=== PATIENT | female | born 1960 | race Caucasian/White ===

== ENCOUNTER 2025-02-20 10:13 | Inpatient (IN) | payer MEDICARE, BC, SELFPAY ==
[2025-02-20] VITALS (8 sets, daily range): BP systolic 167–197; BP diastolic 79–101; PULSE 75–96; RESP 15–24; TEMP 36.2–36.8; O2SAT 98–100; BMI 28.5; BMI 28.3
--- NOTE | 2025-02-20 10:31 | CT_ITS ---
PROCEDURE: BRAIN/HEAD WITHOUT CONTRAST 02/20/2025 REASON FOR EXAM: INTERMITTENT BALANCE PROBLEMS, FORGETFULNESS TECHNIQUE: Procedure Code: CTBR Modality: CT Procedure: BRAIN/HEAD WITHOUT CONTRAST Coronal and Sagittal reconstruction series were provided. One or more dose reduction techniques were used (e.g., Automated exposure control, adjustment of the mA and/or kV according to patient size, use of iterative reconstruction technique. RADIATION DOSE SUMMARY: CTDlvol: 45 mGy DLP: 745 mGycm COMPARISON: None FINDINGS: Brain: There is no evidence of hemorrhage, acute ischemia or mass. No extra- axial fluid collection, midline shift or mass effect. Mild low-density in the periventricular white matter. CSF Spaces: Mild generalized cerebral atrophy Sinuses/Mastoids: Clear Bones: No fracture CT/Brain/Head without Contrast IMPRESSION: 1. No evidence of intracranial hemorrhage or acute ischemia. 2. Changes of chronic microvascular ischemia and volume loss. Reading Location: [id number]
--- NOTE | 2025-02-20 10:32 | EX.ED.DYSGE1 ---
HPI History of Present Illness Chief Complaint: Hypertension Detail of Chief Complaint: Intermittent dizziness , fogginess, blood pressure noted to be elevated t Informant: patient Onset/Context/Timing Onset: Today (Blood pressure 192/112 at work) and Month(s) (Other symptoms have been intermittent for over the past several months) Context: Sudden Onset Timing: Intermittent Quality: Dizziness, forgetfulness, feeling foggy Location: Not applicable Current Severity: Gone (Except blood pressure is elevated) Maximum Severity: Moderate Worsened by: Nothing Relieved by: Nothing Associated Symptoms Associated Symptoms: Nothing Narrative Narrative: Patient is a 64-year-old woman who has not seen a physician in 26 years who experienced dizziness today described as her balance being off. It is not positional. There is no associated double vision, blurred vision or loss of vision. She has had no trouble with speech or swallowing. She denies paresthesia, anesthesia or weakness of her upper or lower extremities. She denies headache. She denies nausea or vomiting. She denies black or maroon-colored stool. She has had intentional weight loss of approximately 40 pounds. There is no history of trauma. Patient does endorse thirst and dry mouth. She has had some increased urination as well Prior similar symptoms: No Recent Illness/Hospitalization: No PFSH PFSH Medical History no medical history no medical history Allergy/AdvReac Type Severity Reaction Status Date / Time No Known Allergies Allergy Verified 02/20/25 10:16 Surgical History no surgical history no surgical history Social History Smoking Status: Never smoker [facility] ED Constitutional Constitutional ED: Reports weight loss; Denies chills, fever(s), subjective or sweats Eyes Eyes: Reports other Details: She is scheduled for an eye appointment. Her insurance pays for new eyeglasses every 3 years. ; Denies blurry vision, change in vision or diplopia ENT ENT ED: Denies ear pain, rhinorrhea or sore throat Cardiovascular Cardiovascular: Denies chest pain, orthopnea, palpitations, paroxysmal nocturnal dyspnea or racing heartbeat Respiratory/Chest Respiratory/Chest: Denies cough, dyspnea, dyspnea on exertion, orthopnea or paroxysmal nocturnal dyspnea Gastrointestinal Gastrointestinal: Denies abdominal pain, nausea or vomiting Genitourinary Genitourinary ED: Denies dysuria, hematuria or urinary frequency Musculoskeletal Musculoskeletal: Denies arthralgias, back pain, myalgias or neck pain Integumentary Denies rash Neurologic Neurologic: Reports other Details: Detailed HPI narrative ; Denies headache(s), paresthesias or weakness Psychiatric Psychiatric: Denies anxiety or depression Endocrine Endocrinology: Denies cold intolerance or heat intolerance Hematologic/Lymphatic Hematologic/Lymphatic: Reports systems reviewed and no addt'l complaints, except as documented EXAM Physical Exam Const Vital Signs: 02/20/25 10:15 02/20/25 10:50 02/20/25 12:17 Temperature 97.6 F L Temperature Source Oral Pulse Rate 96 79 Respiratory Rate 18 16 Respiratory Effort Normal Non-Labored Respiratory Pattern Normal Blood Pressure 186/90 H 192/79 H Blood Pressure Mean 122 116 Pulse Ox 99 100 Oxygen Delivery Method Room Air Room Air Positive well nourished and well developed Constitutional Narrative: Blood pressure is elevated. General Appearance ED: well developed and NAD; Negative for pallor HEENT Reports moist mucous membranes HEENT Narrative: Head is atraumatic and normocephalic. Ears normal. Nares patent. Posterior pharynx is unremarkable. Uvula midline. No deviation tongue or protrusion. Eyes PERRL and EOMs intact bilaterally Eyes Narrative: There is no nystagmus. General Eye ED: Negative for pale conjunctiva or scleral icterus Neck no lymphadenopathy, supple and no JVD Chest Wall inspection of chest normal and palpation of chest normal Resp normal respiratory effort and clear to auscultation bilaterally Cardio regular rate, regular rhythm, S1 normal heart sound, S2 normal heart sound and no murmurs GI normal to inspection, nondistended, normoactive bowel sounds, non-tender, non-distended and no masses; Negative for hepatosplenomegaly Back/Spine no CVA tenderness Extremity normal to inspection General Extremety ED: Negative for edema or tenderness General Extremity: Negative for edema Neuro oriented x3, CN's II-XII intact bilaterally and no sensory deficits noted Neuro Narrative: Patient has no dysmetria. Romberg with eyes open and closes abnormal when her eyes are closed. Patient's proprioception is off. Significant other states at times when she is walking she seems to drift to the left. Sensorium / Orientation: alert Motor Exam: strength 5/5 throughout Skin no rashes or lesions noted, no wounds and No skin turgor normal General Skin Exam: Negative for jaundice or pallor MDM MDM MDM Narrative Medical decision making narrative: With intermittent dizziness that lasts hours and is not positional need to evaluate for central etiology and will obtain CT of the head. Since patient's proprioception is off will assess for folate and B12 deficiency. 2 relatives recently diagnosed with Radha's. She denies diarrhea, abdominal cramps, heat intolerance. She does have what I believed to be a nodule left lobe of the thyroid. Trachea was midline. For this reason we will obtain a TSH. CBC was obtained to assess for anemia since she appears pale. BMP to assess for renal function with her elevated blood pressure. There are no prior records and she has not seen a physician in 26 years. Lab Data Attestation: I reviewed the patient's lab results. Lab results narrative: CBC reveals mild anemia with normal indices. UA reveals bacteria without pyuria. Macro was positive for leukoesterase and negative for blood and nitrites. Protein was slightly elevated. Labs: Laboratory Results - last 24 hr 02/20/25 02/20/25 10:40 10:58 WBC 8.3 RBC 3.86 L Hgb 11.8 L Hct 33.4 L MCV 86.5 MCH 30.6 MCHC 35.3 RDW Std Deviation 44.0 H RDW Coeff of Liza 14.0 Plt Count 235 MPV 10.0 Immature Gran % (Auto) 0.500 Neut % (Auto) 67.9 Lymph % (Auto) 20.9 Nelson % (Auto) 9.1 Eos % (Auto) 1.1 Baso % (Auto) 0.5 Absolute Neuts (auto) 5.7 Absolute Lymphs (auto) 1.74 Nucleated RBC % 0 Sodium 141 Potassium 2.3 L* Chloride 101 Carbon Dioxide 30.5 Anion Gap 10 BUN 16 Creatinine 1.23 H Estim Creat Clear Calc 44.69 L Est GFR (MDRD) Non-Af 48 L BUN/Creatinine Ratio 12.9 Glucose 113 H Calcium 14.7 H* Total Bilirubin 0.61 AST 23 ALT 15 Alkaline Phosphatase 53 Total Protein 6.7 Albumin 4.1 Globulin 2.6 Albumin/Globulin Ratio 1.6 Vitamin B12 421 Serum Folate 18.10 TSH 3.250 Urine Color Yellow Urine Clarity Clear Urine pH 6.5 Ur Specific [place] 1.010 Urine Protein 30 H Urine Glucose (UA) Normal Urine Ketones Negative Urine Occult Blood Negative Urine Nitrite Negative Urine Bilirubin Negative Urine Urobilinogen Normal Ur Leukocyte Esterase 25 H Urine RBC 0-5 SEEN Urine WBC 0-5 SEEN Ur Squamous Epith Cells 5-10 SEEN Urine Bacteria 1+ Urine Mucus 0 SEEN With potassium of 2.3 will treat orally since there is no contraindication to oral treatment. Will obtain magnesium level. Because of the elevated calcium we will get a parathyroid level. Concern for malignancy. Will treat her hypercalcemia with IV fluids. Radiography Diagnostic Testing: Clinical Impression(s) from Imaging Studies Brain CT 02/20/25 10:31 IMPRESSION: 1. No evidence of intracranial hemorrhage or acute ischemia. 2. Changes of chronic microvascular ischemia and volume loss. Reading Location: [id number] Management Discussion w/another healthcare provider: Hospitalist (Case discussed with Dr. Reena Redmond. Admit PCU for workup of hypercalcemia and hypokalemia.) Discharge Plan Dx/Rx/DC Orders Clinical Impression: Hypercalcemia, Acute hypokalemia, Intermittent vertigo, Hypertension, Anemia, Elevated serum creatinine Disposition Disposition: Acute Care Hospital [facility]
[2025-02-20 10:51] LABS: Hematocrit 33.4 % (37-47); Hemoglobin 11.8 g/dL (12.0-15.0); Immature Granulocytes Count 0.040 X10^3/uL (0.0-0.0); Mean Corp Hgb Conc 35.3 g/dL (32-36); Mean Corpuscular Volume 86.5 fL (81-99); Mean Platelet Vol. 10.0 fl (6.2-12.0); NRBC Flagged by Analyzer 0 % (0-5); Platelet Count 235 K/mm3 (150-450); RBC Distribution Width CV 14.0 % (11.6-14.6); RBC Distribution Width SD 44.0 fl (35.1-43.9); Red Blood Count 3.86 M/mm3 (4.2-5.4); White Blood Count 8.3 K/mm3 (4.4-11.0)
[2025-02-20 11:05] LABS: Mucous, Urine 0 SEEN /hpf (<or=2+)
[2025-02-20 11:20] LABS: Color, Urine Yellow (Yellow); Glucose, Dipstick Normal (Normal); Ketone-Dipstick Negative (Negative); Leukocyte Esterase-Dipstick 25 /ul (Negative); Nitrite-Dipstick Negative (Negative); Occult Blood-Urine Negative /ul (Negative); Protein-Dipstick 30 mg/dl (Negative); Specific Gravity, Urine 1.010 (1.002-1.030); Urine Bilirubin Dipstick Negative (Negative)
[2025-02-20 11:32] LABS: Red Blood Cells-Urine 0-5 SEEN /hpf (0-5); Squamous Epithelial Cells - UA 5-10 SEEN /hpf (5-10)
[2025-02-20 11:37] LABS: Vitamin B12 421 pg/mL (180-914)
[2025-02-20 11:46] LABS: FOLATES,SERUM (FOLIC ACID) 18.10 ng/mL (4.60-34.80)
[2025-02-20 12:15] LABS: AST(SGOT) 23 U/L (<=31); Alanine Aminotransfer ALT/SGPT 15 U/L (<=34); Albumin, Serum 4.1 g/dL (3.4-4.8); Alkaline Phosphatase 53 U/L (35-104); Anion Gap 10 (5-15); BUN 16 mg/dL (4-19); BUN/Creat Ratio 12.9 RATIO (10-20); Calcium,Total 14.7 mg/dL (7.6-11.0); Carbon Dioxide 30.5 mmol/L (21.0-32.0); Chloride 101 mmol/L (98-108); Estimated Creatinine Clearance 44.69 ml/min (50-250); Globulin 2.6 g/dL (2.2-4.2); Glucose 113 mg/dL (70-99); Potassium 2.3 mmol/L (3.3-5.1)
--- NOTE | 2025-02-20 12:35 | PCM.HP.STD ---
[facility] - General General Date of Admission: 02/20/25 Date of Service: 02/20/25 Chief Complaint: Intermittent dizziness/fogginess HPI Narrative KENTRELL VARGAS, is a 64 F who presented to the emergency department at [facility] on 02/20/2025 with chief complaint of forgetfulness, some dizziness, fogginess feeling of elevated blood pressure. Patient has not seen a physician since she turned 48. She also feels off balance and generally fatigued. She did complain of some thirst and having a dry mouth and some increased urination and has had an intentional weight loss of 40 pounds. Vital signs on presentation showed a temperature of 97.6, heart rate was 96, respiratory was 18, blood pressure was 186/90 and pulse ox was 99% on room air. CBC showed a normal white count with a mild anemia having a hemoglobin 11.8. Differential is unremarkable. Chemistry panel showed a potassium of 2.3 with a BUN of 16 and serum creatinine 1.23. Her calcium was markedly elevated at 14.7 with an elevated ionized calcium at 1.54. TSH, folic acid, and B12 were all within normal limits. Her urinalysis was overtly unremarkable. The emergency department sent off an intact PTH and I added on a vitamin D25 and [address] of the brain was unremarkable for any acute findings. Patient was started on aggressive IV fluids and request for admission was made. [facility] Medical History no medical history no medical history Allergy/AdvReac Type Severity Reaction Status Date / Time No Known Allergies Allergy Verified 02/20/25 10:16 Family History no significant family his no significant family history Surgical History no surgical history no surgical history Social History (Updated 02/20/25 @ 19:[address] Reena Redmond, DO) household members: spouse housing: house Smoking Status: Never smoker alcohol intake: current alcohol intake frequency: holidays/special occasions only substance use type: does not use ROS Constitutional Constitutional: Reports change in weight, fatigue and weakness; Denies anorexia, chills, fever(s), malaise, night sweats or other Eyes Eyes: Denies blurry vision, change in eye color, change in vision, discharge from eye(s), double vision, erythema, eye pain, loss of vision or other ENT HEENT: Denies abnormal hearing, dysphagia, ear pain, epistaxis, headache(s), hearing loss, nasal congestion, nasal discharge, post nasal drip, sinus pressure, sore throat or other Cardiovascular Cardiovascular: Denies chest pain, claudication, dyspnea on exertion, edema, lightheadedness, orthopnea, palpitations, paroxysmal nocturnal dyspnea, rapid heart rate, syncope or other Respiratory/Chest Respiratory/Chest: Denies cough, dyspnea, excessive phlegm production, hemoptysis, productive cough, shortness of breath at rest, shortness of breath with exertion, wheezing or other Gastrointestinal Gastrointestinal: Reports constipation; Denies abdominal pain, coffee ground emesis, diarrhea, dyspepsia, hematemesis, hematochezia, loose stools, melena, nausea, vomiting or other Genitourinary Genitourinary: Reports urinary frequency; Denies burning urination, difficulty urinating, dysuria, hematuria, nocturia, urinary hesitancy, urinary incontinence, urinary urgency or other Musculoskeletal Musculoskeletal: Reports myalgias and other Details: Generalized weakness ; Denies arthralgias, back pain, joint pain, joint stiffness, joint swelling or neck pain Neurologic Neurologic: Reports abnormal gait and disequilibrium; Denies abnormal speech, confusion, dizziness, focal weakness, headache(s), numbness, paresthesias, seizure-like activity, seizures, syncope, tingling, tremor(s) or other Psychiatric Psychiatric: Denies anxiety, depression, homicidal ideation, suicidal ideation or other Endocrine Endocrinology: Denies change in body appearance, cold intolerance, excessive sweating, heat intolerance, polydipsia, polyuria or other Hematologic/Lymphatic Hematologic/Lymphatic: Denies anemia, easy bleeding, easy bruising, lymphadenopathy or other Allergic/Immunologic Allergic/Immunologic: Denies rhinitis, hives, eczemia, asthma or other Vital Signs Vital Signs Vital Signs: 02/20/25 10:15 02/20/25 10:50 02/20/25 12:17 Temperature 97.6 F L Temperature Source Oral Pulse Rate 96 79 Respiratory Rate 18 16 Respiratory Effort Normal Non-Labored Respiratory Pattern Normal Blood Pressure 186/90 H 192/79 H Blood Pressure Mean 122 116 Pulse Ox 99 100 Oxygen Delivery Method Room Air Room Air Weight Weight: 75.251 kg Body Mass Index (BMI) 28.5 Physical Exam Const alert, oriented x3, no apparent distress and well nourished Constitutional Narrative: Overweight, upper middle-aged, white female, lying in bed, family at bedside, patient appears comfortable, does not look toxic General Appearance: cooperative HEENT normocephalic, head/scalp atraumatic, hearing grossly normal bilaterally and moist oral mucous membranes HEENT Narrative: Mallampati 2, no thrush Resp normal respiratory effort, no retractions, no use of accessory muscles and clear to auscultation bilaterally Auscultation: Negative for rales, rhonchi or wheezes Cardio regular rate, regular rhythm, S1 normal heart sound, S2 normal heart sound, no murmurs, no rub, no gallops and no clicks GI normal to inspection, nondistended, normoactive bowel sounds, soft to palpation and non-tender Extremity no clubbing, cyanosis or edema Neuro moves all extremities and no focal motor deficits Neuro Narrative: Reflexes were normoactive, mild generalized weakness Speech: speech normal Psych affect normal Psych Narrative: Very pleasant, interacts appropriately Results Lab / Micro Data 02/20/25 10:40 02/20/25 10:40 Labs: Laboratory Results - last 24 hr 02/20/25 10:40: WBC 8.3, RBC 3.86 L, Hgb 11.8 L, Hct 33.4 L, MCV 86.5, MCH 30.6, MCHC 35.3, RDW Std Deviation 44.0 H, RDW Coeff of Liza 14.0, Plt Count 235, MPV 10.0, Immature Gran % (Auto) 0.500, Neut % (Auto) 67.9, Lymph % (Auto) 20.9, Ocean % (Auto) 9.1, Eos % (Auto) 1.1, Baso % (Auto) 0.5, Absolute Neuts (auto) 5.7, Absolute Lymphs (auto) 1.74, Nucleated RBC % 0, Sodium 141, Potassium 2.3 L*, Chloride 101, Carbon Dioxide 30.5, Anion Gap 10, BUN 16, Creatinine 1.23 H, Estim Creat Clear Calc 44.69 L, Est GFR (MDRD) Non-Af 48 L, BUN/Creatinine Ratio 12.9, Glucose 113 H, Calcium 14.7 H*, Total Bilirubin 0.61, AST 23, ALT 15, Alkaline Phosphatase 53, Total Protein 6.7, Albumin 4.1, Globulin 2.6, Albumin/Globulin Ratio 1.6, Vitamin B12 421, Serum Folate 18.10, TSH 3.250 02/20/25 10:58: Urine Color Yellow, Urine Clarity Clear, Urine pH 6.5, Ur Specific [place] 1.010, Urine Protein 30 H, Urine Glucose (UA) Normal, Urine Ketones Negative, Urine Occult Blood Negative, Urine Nitrite Negative, Urine Bilirubin Negative, Urine Urobilinogen Normal, Ur Leukocyte Esterase 25 H, Urine RBC 0-5 SEEN, Urine WBC 0-5 SEEN, Ur Squamous Epith Cells 5-10 SEEN, Urine Bacteria 1+, Urine Mucus 0 SEEN Imaging Radiology Impression Brain CT 02/20/25 10:31 IMPRESSION: 1. No evidence of intracranial hemorrhage or acute ischemia. 2. Changes of chronic microvascular ischemia and volume loss. Reading Location: [id number] Assessment & Plan Assessment/Plan (1) Elevated serum creatinine: (2) Hypercalcemia: (3) Vitamin D toxicity: (4) Acute hypokalemia: (5) Elevated blood pressure reading: (6) Anemia: PLAN: Plan Hypocalcemia secondary to vitamin D toxicity - Patient has been taking excessive amounts of vitamin D dosing is unclear but she states she has been taking 2 tablets of a higher dose at home - to bring in a bottle in the morning - Stop vitamin D supplementation - Patient received 1 dose of zoledronic acid - Continue aggressive IV fluids - Repeat ionized calcium in a.m. - CT chest abdomen pelvis negative for any signs of malignancy - PTH low normal/PTH RP was ordered on admission and still pending Elevated blood pressure reading - Highly suspect patient has hypertension at baseline - Does not follow with a doctor regularly - Start losartan 50 mg daily - suspect will need up titration but continue to monitor blood pressure - As needed hydralazine available for systolic blood pressure greater than 170 Acute hypokalemia - Replaced - Recheck in a.m. - Magnesium levels 1.5 Elevated serum creatinine - baseline is unknown - Aggressive IV fluids and recheck in a.m. Anemia - Normocytic and very mild - Repeat CBC in a.m. as I do suspect she may be slightly dehydrated DVT prophylaxis - Enoxaparin 40 daily CODE STATUS - Full code Charges/Coding Visit Charges Inpatient E&M: 46014 Init Hosp L2
--- NOTE | 2025-02-20 12:48 | CT_ITS ---
PROCEDURE: CT CHEST, ABD, PEL W/CONTRAST 02/20/2025 REASON FOR EXAM: HYPERCALCEMIA Dizziness. TECHNIQUE: Chest, abdomen and pelvis CT with intravenous contrast. Coronal and Sagittal reconstruction series were provided. One or more dose reduction techniques were used (e.g., Automated exposure control, adjustment of the mA and/or kV according to patient size, use of iterative reconstruction technique. PATIENT PREPARATION: Per protocol ORAL CONTRAST TYPE: None. CONTRAST: Isovue-300 VOLUME: 100mL RADIATION DOSE SUMMARY: CTDlvol: 11.2 mGy DLP: 916.16 mGycm COMPARISON: None FINDINGS: CT CHEST: Hardware: None Lymph nodes: No significant lymph nodes are seen. Heart and Vasculature: The heart is nonenlarged. Coronary artery calcification. Lungs and Airways: Increased linear markings in the lingular segment of the left upper lobe suggestive of scarring. Minimal scarring in the left lower lobe. No pulmonary nodule seen. Pleura: No pleural effusion. Bones: Degenerative changes of the thoracic spine. CT ABDOMEN/PELVIS: Liver: There is a 2 cm cyst in the posterior dome of the right lobe of the liver. There is also evidence of a 1.9 cm cyst in the inferior medial aspect of the right lobe of the liver. Gallbladder: Small gallstones. Spleen: Normal size. Pancreas: Diffuse fatty atrophy. Adrenals: Unremarkable Kidneys: Normal renal sizes. No hydronephrosis. Bladder: Distended urinary bladder. Reproductive Organs: Normal uterine size and contour. Ovaries are unremarkable. Bowel: Findings suggestive of possible colitis of the transverse colon. Appendix: The appendix is not identified. There is no inflammatory process identified in the right lower quadrant to suggest appendicitis. Lymph nodes: Unremarkable. Vasculature: Mild diffuse atherosclerotic calcifications are noted. Peritoneum / Retroperitoneum: Unremarkable Bones: Degenerative changes of the spine. Grade 1 anterior listhesis of L4 on L5 without spondylolysis. CT/CT Chest, Abd, Pel w/Contrast IMPRESSION: Mild scarring in the lingular segment of the left upper lobe and left lower lob e. Coronary artery calcification. Multiple gallstones. Fatty infiltration of the pancreas. Findings suggestive of possible colitis of the transverse colon. Reading Location: [id number]
[2025-02-20] MEDS: Potassium Chloride Oral Soln 20 MEQ/15 ML UDC 40 MEQ PO (12:56)
[2025-02-20] MEDS: 0.9% Normal Saline (1000mL) 1,000 ML 250 ML IV ×3 (12:56→20:44)
[2025-02-20 13:19] LABS: Ionized Calcium Order 1.53
[2025-02-20 13:26] LABS: PTHIN 14 pg/mL (11-61)
[2025-02-20 13:34] LABS: Magnesium 1.5 mg/dL (1.5-2.2)
--- NOTE | 2025-02-20 13:37 | CASEMGMT ---
Care Management Face to Face with patient for initial transition planning/care coordination assessment in the ED.? This hand sign writer introduced self and role at [facility]. Patient alert and oriented. Patient willing to participate in assessment and is able to answer all questions appropriately.? Care providers, pharmacy, and demographics verified. Admitting Diagnosis: ??Hypertension Other diagnosis history: ?none PCP: ?does not currently have one, [facility] provider list given Specialists: ?none [facility]erred [facility]acy: [facility]: ?Medicare A only Prescription Benefit: ?[place] Living Will/HPOA: ?Does not have done, would like to complete while admitted LNOK: ? Living Arrangements: ?Patient lives with in ranch home, independent with ADLs and IADLs?? Transportation: ?patient drives DME: blood pressure cuff HHC: ?none SNF/Rehab: ?none Community Resources: ?none Behavioral Health History: ?none Patient goals: Patient wishes to discharge home, denies need for home health care at this time. Patient denies any further needs or concerns at this time. Disposition Plan: admission to acute; RN CM/SW to follow for discharge planning needs that may arise. Nava Wright, BAKELITE MOLDER, JEWELER APPRENTICE
[2025-02-20] MEDS: Zoledronic Acid 4 MG in 0.9% Normal Saline (100mL Bag) 100 ML 200 MG IV (14:17)
[2025-02-20 14:29] LABS: Vitamin D,25 Hydroxy > 240.0 ng/mL (30-100)
[2025-02-21] MEDS: 0.9% Normal Saline (1000mL) 1,000 ML 250 ML IV ×2 (00:45→04:28)
[2025-02-21 00:50] VITALS: BP 148/75; PULSE 82; RESP 13; TEMP 36.7; O2SAT 98
[2025-02-21 04:25] VITALS: BP 176/84; PULSE 88; RESP 15; TEMP 36.6; O2SAT 98
[2025-02-21 06:09] LABS: Hematocrit 30.1 % (37-47); Hemoglobin 10.7 g/dL (12.0-15.0); Immature Granulocytes Count 0.040 X10^3/uL (0.0-0.0); Mean Corp Hgb Conc 35.5 g/dL (32-36); Mean Corpuscular Volume 87.8 fL (81-99); Mean Platelet Vol. 10.7 fl (6.2-12.0); NRBC Flagged by Analyzer 0 % (0-5); Platelet Count 224 K/mm3 (150-450); RBC Distribution Width CV 14.3 % (11.6-14.6); RBC Distribution Width SD 45.8 fl (35.1-43.9); Red Blood Count 3.43 M/mm3 (4.2-5.4); White Blood Count 8.5 K/mm3 (4.4-11.0)
[2025-02-21 06:33] LABS: Magnesium 1.5 mg/dL (1.5-2.2)
[2025-02-21 06:37] LABS: Anion Gap 9 (5-15); BUN 11 mg/dL (4-19); BUN/Creat Ratio 10.4 RATIO (10-20); Calcium,Total 12.3 mg/dL (7.6-11.0); Carbon Dioxide 26.1 mmol/L (21.0-32.0); Chloride 112 mmol/L (98-108); Estimated Creatinine Clearance 54.42 ml/min (50-250); Glucose 99 mg/dL (70-99); Potassium 2.4 mmol/L (3.3-5.1)
[2025-02-21 06:57] LABS: Ionized Calcium Order ORDER TUBE
--- NOTE | 2025-02-21 07:20 | PCM.DC.SUM ---
Providers Date of Admission: 02/20/25 Date of Discharge: 02/21/25 Primary Care Physician: No Primary Care Phys Reason For Visit: HYPOKALEMIA/HYPERCALCEMIA Diagnosis Discharge Diagnosis (1) Elevated serum creatinine: Status: Acute Code(s): R79.89 - Other specified abnormal findings of blood chemistry (2) Hypercalcemia: Status: Acute Code(s): E83.52 - Hypercalcemia (3) Vitamin D toxicity: Status: Acute Code(s): T45.2X1A - Poisoning by vitamins, accidental (unintentional), initial encounter (4) Acute hypokalemia: Status: Acute Code(s): E87.6 - Hypokalemia (5) Elevated blood pressure reading: Status: Acute Code(s): R03.0 - Elevated blood-pressure reading, without diagnosis of hypertension (6) Anemia: Status: Acute Code(s): D64.9 - Anemia, unspecified Medications at Discharge Home Medications amlodipine 10 mg tablet 10 mg PO DAILY #30 tabs 02/21/25 losartan 50 mg tablet 50 mg PO DAILY #30 tabs 02/21/25 Hospital Course Operations None Procedures - (CTA chest/abdomen and pelvis) Summary of Care Provided Minutes Spent on Discharge: 37 Hospital Course: KENTRELL VARGAS, is a 64 F who presented to the emergency department at [facility] on 02/20/2025 with chief complaint of forgetfulness, some dizziness, fogginess feeling of elevated blood pressure. Patient has not seen a physician since she turned 48. She also feels off balance and generally fatigued. She did complain of some thirst and having a dry mouth and some increased urination and has had an intentional weight loss of 40 pounds. Vital signs on presentation showed a temperature of 97.6, heart rate was 96, respiratory was 18, blood pressure was 186/90 and pulse ox was 99% on room air. CBC showed a normal white count with a mild anemia having a hemoglobin 11.8. Differential is unremarkable. Chemistry panel showed a potassium of 2.3 with a BUN of 16 and serum creatinine 1.23. Her calcium was markedly elevated at 14.7 with an elevated ionized calcium at 1.54. TSH, folic acid, and B12 were all within normal limits. Her urinalysis was overtly unremarkable. The emergency department sent off an intact PTH and I added on a vitamin D25 and [address] of the brain was unremarkable for any acute findings. Patient was started on aggressive IV fluids and request for admission was made. Her intact PTH was in the low normal range. Vitamin D 125 is pending at the time of discharge however her vitamin D 25 level was greater than 240 which is the upper limits of the capacity of our testing. Upon review further with the patient when questioning about vitamins as they were not documented as part of her med reconciliation, she admitted to taking a significant amount of vitamin D supplementation. She was unclear of the dosage but was taking 1 tablet daily since May. Her brought in the bottle on the a.m. of 02/21/2025 and she was taking 50,000 international units daily since May of this year which explains her vitamin D toxicity leading to her hypercalcemia. With IV fluids we got her calcium down to 12.3. She was also given zoledronic acid at the time of admission which should bring down her calcium further in the next 24 to 48 hours. She was found to have hypophosphatemia and hypokalemia. Both were replaced. She got a total of 40 mmol of potassium phosphorus via IV and 100 mill equivalents of p.o. potassium. Her blood pressure was persistently elevated so she was started on losartan 50 mg daily on the day of admission and then we added amlodipine 10 mg. She has a blood pressure cuff at home and is to check her blood pressure on a regular basis daily at various times, record them, and take them to her doctor's appointment. She is not established with a primary care physician however we strongly encouraged her to do so at this point. I would recommend she have a follow-up BMP done in the next 2 weeks if possible to reassess her calcium level as well as her renal function electrolytes. Patient was told to avoid all vitamin D supplementation and multivitamins as there is vitamin D most likely most of them as well. Patient and the voiced understanding. She was able to be discharged home in stable condition on 02/21/2025. Discharge diagnoses: Hypercalcemia Vitamin D toxicity Hypertension Acute hypokalemia Acute hypophosphatemia Elevated serum creatinine Anemia Patient improved more quickly than anticipated at the time of admission and diagnosis was able to be obtained and easily treated more quickly than anticipated the time of admission. Physical Exam Const alert, oriented x3, no apparent distress, no limitations, healthy appearing and well nourished; Negative for average body habitus Constitutional Narrative: Overweight, upper middle-aged, white female, sitting up in bed, at bedside, patient appears comfortable, nontoxic General Appearance: cooperative, comfortable, well kempt and well developed Exam Limitations: no limitations Nutritional Appearance: overweight HEENT normocephalic, head/scalp atraumatic, hearing grossly normal bilaterally and moist oral mucous membranes HEENT Narrative: Mallampati 2-3, no thrush Eyes conjunctivae normal Eyes Narrative: No scleral icterus Neck supple Neck Narrative: Trachea midline Resp normal respiratory effort, no retractions, no use of accessory muscles and clear to auscultation bilaterally Auscultation: Negative for rales, rhonchi or wheezes Cardio regular rate, regular rhythm, S1 normal heart sound, S2 normal heart sound, no murmurs, no rub, no gallops and no clicks GI normal to inspection, nondistended, normoactive bowel sounds, soft to palpation and non-tender Extremity no clubbing, cyanosis or edema Extremity Narrative: 2+ pedal and radial pulses Skin no jaundice, no petechiae and no mottling Neuro moves all extremities and no focal motor deficits Neuro Narrative: Reflexes were normoactive, mild generalized weakness Speech: speech normal Psych affect normal Psych Narrative: Very pleasant, interacts appropriately Weight / BMI Weight Weight: 75.251 kg Body Mass Index (BMI) 28.3 ABG / Lab / Microbiology Data 02/21/25 05:41 02/21/25 05:41 Laboratory: Laboratory Results - last 24 hr 02/20/25 10:40: Vitamin D 25-Hydroxy > 240.0 H 02/20/25 13:00: Ionized Calcium Cancelled 02/21/25 05:41: WBC 8.5, RBC 3.43 L, Hgb 10.7 L, Hct 30.1 L, MCV 87.8, MCH 31.2, MCHC 35.5, RDW Std Deviation 45.8 H, RDW Coeff of Liza 14.3, Plt Count 224, MPV 10.7, Immature Gran % (Auto) 0.500, Neut % (Auto) 70.9 H, Lymph % (Auto) 16.9 L, [place] % (Auto) 8.8, Eos % (Auto) 2.4, Baso % (Auto) 0.5, Absolute Neuts (auto) 6.0, Absolute Lymphs (auto) 1.43, Nucleated RBC % 0, Sodium 148 H, Potassium 2.4 L*, Chloride 112 H, Carbon Dioxide 26.1, Anion Gap 9, BUN 11, Creatinine 1.01, Estim Creat Clear Calc 54.42, Est GFR (MDRD) Non-Af 61, BUN/Creatinine Ratio 10.4, Glucose 99, Calcium 12.3 H, Phosphorus 2.1 L, Magnesium 1.5 Radiography Diagnostic Testing: Radiology Impression Chest/Abdomen/Pelvis CT 02/20/25 12:48 IMPRESSION: Mild scarring in the lingular segment of the left upper lobe and left lower lobe. Coronary artery calcification. Multiple gallstones. Fatty infiltration of the pancreas. Findings suggestive of possible colitis of the transverse colon. Reading Location: [id number] D/C Instructions Discharge Activity: Return to Normal Activity Return to work on: 02/25/25 DC O2, CPAP, BIPAP Needs Home O2 Discharge instructions: No DC home with Oxygen: No Meaningful Use Info Meaningful Use Meaningful Use Diagnoses (Choose all that apply): None applicable Discharge Plan Admission Admit Date/Time: 02/20/25 12:37 Primary Reason for Your Visit: Intermittent dizziness/fogginess/weakness Attending Provider: Reena Redmond Primary Care Provider: Debby Cartagena,Radha Primary Instructions Additional Instructions / Restrictions: 1. Discontinue all supplemental vitamins. Avoid vitamin D supplementation. 2. You were found to have vitamin D toxicity related to oversupplementation which in turn caused your calcium level to go up. 3. Your blood pressure was consistently elevated during your hospitalization. We started medications as noted below. Please take as ordered and follow-up with a primary care physician as soon as possible. 4. Check blood pressure at home daily at different times, write them down, and take to your next appointment Discharge Orders/Prescriptions Prescriptions: New amlodipine 10 mg Tablet 10 mg PO DAILY Qty: 30 0RF losartan 50 mg Tablet 50 mg PO DAILY Qty: 30 0RF Referrals / Follow Up: Care Physician,No Primary [Primary Care Provider, Medical] Disposition Disposition (needs filled in before D/C Order can be placed): Home, Self Care Charges/Coding Visit Charges Inpatient E&M: 96637 Disch Hosp >30min
[2025-02-21] MEDS: Potassium Phosphate 45 MM in 0.9% Normal Saline (500mL Bag) 500 ML 85 MM IV (08:25)
[2025-02-21] MEDS: Potassium Chloride Oral Tablet 20 MEQ 60 MEQ PO (08:25)
[2025-02-21] MEDS: FLU VACCINE HIGH DOSE 25-26(65YR UP) 180 MCG/0.5 ML SYRINGE IM (08:38)
--- NOTE | 2025-02-21 09:25 | CASEMGMT ---
Social Work SW spoke with the patient and her regarding POA/LW. Patient reported they have not discussed yet who they want as POA. SW provided them an information booklet, blank LW/POA paperwork and a rack card. SW informed them SW will check back later today to see if they are ready to complete the forms. TANA Morton
[2025-02-21 10:25] VITALS: BP 171/75; PULSE 77; RESP 16; TEMP 36.8; O2SAT 99
[2025-02-21 12:05] VITALS: BP 154/89; PULSE 85; RESP 16; TEMP 36.7; O2SAT 98
--- NOTE | 2025-02-21 12:12 | CASEMGMT ---
Social Work SW spoke with the patient. Patient did well with therapy. Patient is not interested in HH. TANA Morton
--- NOTE | 2025-02-21 15:19 | CHAPLAIN ---
Type of Pastoral Visit _x__ Initial Visit ___ Follow-up Visit ___ On-call Visit ___ General Patient Visit ___ Spiritual Assessment ___ Family Conference ___ Bereavement ___ Rapid Response ___ Code Blue ___ Other (describe below) Pastoral Care Referral From _x__ Patient ___ Family ___ Nurse ___ Physician ___ Corporate Logistics Manager ___ Java Tech Lead ___ Other (describe below) Sacrament/Intervention _x__ Active listening ___ Anointing ___ Uatsdin ___ Bereavement ___ Communion ___ Alanis exploration ___ _x__ Life review ___ Prayer ___ Reconciliation ___ Sacrament of Sick _x__ Supportive presence ___ Wedding ___ Other (describe below) Pastoral Comments patient and spouse are in the room; both add to the conversation; pt is relieved that the problem was identified although she is somewhat embarrassed by what happened; pt is feeling better and hopes to go home today; some life review and expressed hope of going home summarize the visit
--- NOTE | 2025-02-21 15:58 | PHA.DC_ITS ---
Pharmacy [facility] has performed discharge medication counseling for this patient. The patient was counseled on the following discharge medications and changes in medications for homegoing review. - Losartan 50 mg tablet, Amlodipine 10 mg tablet The Reason for Use, instructions for use, and potential side effects were reviewed for all new medications. The patient's questions regarding all of their medications were answered. The patient was able to verbally demonstrate an understanding of their discharge medications. Medications at Discharge Home Medications amlodipine 10 mg tablet 10 mg PO DAILY #30 tabs 02/21/25 losartan 50 mg tablet 50 mg PO DAILY #30 tabs 02/21/25
[2025-02-25 13:08] LABS: Vitamin D 1,25-Dihydroxy 95.0 pg/mL (24.8-81.5)
== END 2025-02-21 16:07 | disposition home or self-care (01) | DRG 918 ==
LOC: ED 12:27 → PCU 12:57
PROVIDERS: Admitting Provider Internal Medicine; Emergency Provider Emergency Medicine; Visit Provider Internal Medicine
DX: T45.2X1A Poisoning by vitamins, accidental (unintentional), initial encounter (principal); E83.39 Other disorders of phosphorus metabolism; D64.9 Anemia, unspecified; E04.1 Nontoxic single thyroid nodule; I10 Essential (primary) hypertension; E83.52 Hypercalcemia; E87.6 Hypokalemia; R79.89 Other specified abnormal findings of blood chemistry
CPT/HCPCS: 36415; 70450; 71260; 74177; 80048; 80053; 81001; 82306; 82330; 82607; 82652; 82746; 83735; 83970; 84100; 84443; 85025; 85652; 94668; 97165; 99283; J3489; Q9967; A4216

== ENCOUNTER 2025-03-15 16:02 | Outpatient (CLI) | payer MEDICARE, BC, SELFPAY ==
[2025-03-15 16:07] LABS: Mucous, Urine 0 SEEN /hpf (<or=2+)
--- OUTSIDE RECORDS SUMMARY | 2025-03-15 16:24 | XMS RPT_ITS | CCD ---
Author Organization [facility] Inform ion Partnership CLOTH CHECKER [facility] Care Team Providers Care Awning Assembler Name Role Phone Dr. Crispin Xiong MD Emergency Department Physician Care Physician, No Primary Primary Care Physicia n Unavailable Dr. Reena Redmond DO Admitting Physician [phone] Reena Redmond DO Attending Physician Reena Redmond Admitting Unavailable Care Physician, No Primary Primary Care Unava ilReena Huston Attending Unavailable Reena Redmond Consulting Unavailable Reena Redmond Admitting Unavailable Care Physician, No Primary Primary Care Unava ilReena Huston Attending Unavailable Dr. Reena Redmond DO Nurse Practitioner [phone] Medications Current Medications Medication Drug Class(es) Dates Sig (Normalized) Sig (Original) amLODIPine 10 mg oral tablet (1 source) Dihydropyridine Calcium Channel Sandi Start: 02-21-2025 take 1 tablet by mouth once daily losartan potassium 50 mg oral tablet (1 source) Angiotensin 2 Receptor Sandi Start: 02-21-2025 take 1 tablet by mouth once daily Problems Problem Classification Problem Date Documented Da te Episodic/Chronic Conditions associated with dizziness or vertigo (2 sources) Intermittent vertigo; Translations: [Dizziness and giddiness] 02-20-2025 Episodic Deficiency and other anemia (4 sources) Anemia; Translations: [Anemia, unspecified] 02-20-2025 Episodic Deficiency and other anemia (1 source) Anemia, unspecified; Translations: [Anemia, unspecified] Onset: 03-01-2025 Episodic Essential hypertension (2 sources) Hypertensive disorder; Translations: [Essential (primary) hypertension] 02-20-2025 Chronic Fluid and electrolyte disorders (4 sources) Acute hypokalemia; Translations: [Hypokalemia] Onset: 03-01-2025 02-20-2025 Episodic Other circulatory disease (1 source) Elevated blood-pressure reading, without diagnosis of hypertension; Translations: [Elevated blood-pressure reading, without diagnosis of hypertension] Onset: 03-01-2025 Episodic Other circulatory disease (2 sources) Elevated blood pressure; Translations: [Elevated blood-pressure reading, without diagnosis of hypertension] 03-01-2025 Episodic Other nutritional; endocrine; and metabolic disorders (3 sources) Hypercalcemia; Translations: [Hypercalcemia] 02-20-2025 Chronic Other nutritional; endocrine; and metabolic disorders (2 sources) Hypercalcemia; Translations: [Hypercalcemia] Onset: 03-01-2025 Chronic Other screening for suspected conditions (not mental disorders or infectious disease) (4 sources) Serum creatinine raised; Translations: [Other specified abnormal findings of blood chemistry] Onset: 03-01-2025 02-20-2025 Episodic Poisoning by other medications and drugs (3 sources) Poisoning by vitamins, accidental (unintentional), initial encounter; Translations: [Poisoning by vitamin D] Onset: 03-01-2025 03-01-2025 Episodic Results Test Name Value Interpretation Reference Range Facility [id number] 03-01-2025 [facility] COMMENT Normal . [facility] Comment on above: Order Comment: MARTÍN Michaud JORGE FROZEN. COLLECT ON CHILLED TUBE SENT OUT UNTIL TUESDAY. [id number] PTH-RP Result Comment: Test Ordered: [id number] PTHrP (PTH-Related Peptide) PTHrP (PTH-Related Peptide) <2.0 pmol/L ES Reference Range: . This test was developed and its performance characteristics determined by [facility]. It has not been cleared or approved by the Food and Drug Administration. Reference Range: All Ages: <2.0 The PTHrP assay should not be used to exclude cancer or screen tumor patients for humoral hypercalcemia of malignancy (HHM). The results should always be assessed in conjunction with the patient's medical history, clinical examination, and other findings. If test results are clinically discordant, please contact the laboratory. Performed at: [employer] [address] [place] [id number] Stone Paver: Nicole Mayo MD, Phone: [phone] Performed at: [facility] [employer] [id number] Stone Paver: Amilcar Garcia PhD, Phone: [phone] Performed By: #### L 4787.6025, W1604.6080 #### [facility] [address] [place], [place], [address] Vitamin D 1,25-Dihydroxyon 1 VIT D 1,25 DIHY 95.0 pg/mL Abnormal 24.8-81.5 [facility] Comment on above: Order Comment: SENT OUT UNTIL TUESDAY. Result Comment: Perf ormed at: [facility] [id number] Stone Paver: Chantel Cordero MD, Phone: [phone] Performed By: #### L 1316.1761, V5792.3839 #### [facility] [address] [place], [place], [id number] Absolute lymphocyte countOrd ered By: Reena Redmond on 02-21-2025 Lymphocytes Auto (Unsp spec) [#/Vol] 1.43 10*3/uL 0.83-4.51 [facility] Absolute neutrophil countOrd ered By: Reena Redmond on 02-21-2025 Neutrophils (Bld) [#/Vol] 6.0 10*3/uL 2.0-7.7 [facility] Anion gap in Serum or Plasma Ordered By: Reena Redmond on 02-21-2025 Anion gap [Moles/Vol] 9 mmol/L 5- [facility] Automated lymphocyte count a s percentage of total leukocytesOrdered By: Reena Redmond on 02-21-2025 Lymphocytes/100 WBC Auto (Unsp spec) 16.9 % Low 19- [facility] BUN/creatinine ratioOrdered By: Reena Redmond on 02-21-2025 Urea nitrogen/Creatinine [Mass ratio] 10.4 mg/mg 03-04 [facility] Basic Metabolic Profile (BMP )on 02-21-2025 BUN/CRE 10.4 RATIO Normal 03-04 [facility] Comment on above: Performed By: #### L 500.2500, L501.1300 ####[facility] [address] [place], [address] Calcium [Mass/Vol] 12.3 mg/dL High 7.6-11.0 [facility] Comment on above: Performed By: #### L 500.2500, L501.5200 ####[facility] [address] [place], [address] Chloride [Moles/Vol] 112 mmol/L High 98-108 [facility] Comment on above: Performed By: #### L 500.2500, L501.5200 ####[facility] [address] [place], [address] CO2 [Moles/Vol] 26.1 mmol/L Normal 21.0-32.0 [facility] Comment on above: Performed By: #### L 500.2500, L501.5200 ####[facility] [address] [place], [address] Creatinine [Mass/Vol] 1.01 mg/dL Normal 0.70-1.20 [facility] Comment on above: Performed By: #### L 500.2500, L501.5200 ####[facility] [address] [place], [address] ECRCL 54.42 ml/min Normal 50-250 [facility] Comment on above: Performed By: #### L 500.2500, L501.5200 ####[facility] [address] [place], [address] GAP 9 Normal 5-15 [facility] Comment on above: Performed By: #### L 500.2500, L501.5200 ####[facility] [address] [place], [address] GFR/1.73 sq M.predicted among non-blacks MDRD (S/P/Bld) [Vol rate/Area] 61 mL/min/{1.73_m2} Normal >60 [facility] Comment on above: Result Comment: mL/m in/1.73m2 CKD-EPI Creatinine Equation (2020) Performed By: #### L 500.2500, L501.5200 ####[facility] [address] [place], [address] Glucose [Mass/Vol] 99 mg/dL Normal 70-99 [facility] Comment on above: Performed By: #### L 500.2500, L501.5200 ####[facility] [address] [place], [address] Potassium [Moles/Vol] 2.4 mmol/L Invalid Interpretation Code 3.3-5.1 [facility] Comment on above: Result Comment: Crit ical Result(s) Called at: 0636 02/21/2025 by: LAMONTE CUNHA??Results read back by same. Performed By: #### L 500.2500, L501.5200 ####[facility] [address] [place], [address] Sodium [Moles/Vol] 148 mmol/L High 133-145 [facility] Comment on above: Performed By: #### L 500.2500, L501.5200 ####[facility] [address] [place], [address] Urea nitrogen [Mass/Vol] 11 mg/dL Normal 4-19 [facility] Comment on above: Performed By: #### L 500.2500, L501.5200 ####[facility] [address] [place], [address] Basophil percentageOrdered B y: Reena Redmond on 02-21-2025 Basophils/100 WBC (Bld) 0.5 % 0-1 [facility] CBC W/Diff, Automatedon 10-0 Absolute Lymph 1.43 X10 3/uL Normal 0.83-4.51 [facility] Comment on above: Performed By: #### L 100.0100, L501.2300 #### [facility] [address] [place], [address] Absolute Neut 6.0 X10 3/uL Normal 2.0-7.7 [facility] Comment on above: Performed By: #### L 100.0100, L501.2300 #### [facility] [address] [place], [address] Basophils/100 WBC (Bld) 0.5 % Normal 0-1 [facility] Comment on above: Performed By: #### L 100.0100, L501.2300 #### [facility] [address] [place], [address] Eosinophils/100 WBC (Bld) 2.4 % Normal 0-5 [facility] Comment on above: Performed By: #### L 100.0100, L501.2300 #### [facility] [address] [place], [address] Erythrocyte distribution width (RBC) [Ratio] 14.3 % Normal 11.6-14.6 [facility] Comment on above: Performed By: #### L 100.0100, L501.2300 #### [facility] [address] [place], [address] Hematocrit (Bld) [Volume fraction] 30.1 % Low 37-47 [facility] Comment on above: Performed By: #### L 100.0100, L501.2300 #### [facility] [address] [place], [address] Hemoglobin (Bld) [Mass/Vol] 10.7 g/dL Low 12.0-15.0 [facility] Comment on above: Performed By: #### L 100.0100, L501.2300 #### [facility] [address] [place], [address] IG% 0.500 Normal 0.0-0.9 [facility] Comment on above: Result Comment: IG% - Immature Granulocytes (promyelocytes, myelocytes and metamyelocytes) > 1% indicates that a LEFT SHIFT is Present. Performed By: #### L 100.0100, L501.2300 #### [facility] [address] [place], [address] Lymphocytes/100 WBC (Bld) 16.9 % Low 19-41 [facility] Comment on above: Performed By: #### L 100.0100, L501.2300 #### [facility] [address] [place], [address] MCH (RBC) [Entitic mass] 31.2 pg Normal 27.0-32.0 [facility] Comment on above: Performed By: #### L 100.0100, L501.2300 #### [facility] [address] [place], [address] MCHC (RBC) [Mass/Vol] 35.5 g/dL Normal 32-36 [facility] Comment on above: Performed By: #### L 100.0100, L501.2300 #### [facility] [address] [place], [address] MCV (RBC) [Entitic vol] 87.8 fL Normal 81-99 [facility] Comment on above: Performed By: #### L 100.0100, L501.2300 #### [facility] [address] [place], [address] Monocytes/100 WBC (Bld) 8.8 % Normal 0-10 [facility] Comment on above: Performed By: #### L 100.0100, L501.2300 #### [facility] [address] [place], [address] Neutrophils/100 WBC (Bld) 70.9 % High 47-70 [facility] Comment on above: Performed By: #### L 100.0100, L501.2300 #### [facility] [address] [place], [address] Nucleated RBC (Bld) [#/Vol] 0 10*3/uL Normal 0-5 [facility] Comment on above: Performed By: #### L 100.0100, L501.2300 #### [facility] [address] [place], [address] Platelet mean volume (Bld) [Entitic vol] 10.7 fL Normal 6.2-12.0 [facility] Comment on above: Performed By: #### L 100.0100, L501.2300 #### [facility] [address] [place], [address] Platelets (Bld) [#/Vol] 224 10*3/uL Normal 150-450 [facility] Comment on above: Performed By: #### L 100.0100, L501.2300 #### [facility] [address] [place], [address] RBC (Bld) [#/Vol] 3.43 10*6/uL Low 4.2-5.4 [facility] Comment on above: Performed By: #### L 100.0100, L501.2300 #### [facility] [address] [place], [address] RDW SD 45.8 fl High 35.1-43.9 [facility] Comment on above: Performed By: #### L 100.0100, L501.2300 #### [facility] [address] [place], [address] WBC (Bld) [#/Vol] 8.5 10*3/uL Normal 4.4-11.0 [facility] Comment on above: Performed By: #### L 100.0100, L501.2300 #### [facility] [address] [place], [address] Carbon dioxide, total [Moles /volume] in Central venous bloodOrdered By: Reena Redmond on 02-21-2025 CO2 [Moles/Vol] 26.1 mmol/L 21.0-32.0 [facility] Chloride assayOrdered By: Rickey Redmond on 02-21-2025 Chloride [Moles/Vol] 112 mmol/L High 98-108 [facility] Eosinophil percentageOrdered By: Reena Redmond on 02-21-2025 Eosinophils/100 WBC (Bld) 2.4 % 0-5 [facility] Erythrocyte distribution wid th ratioOrdered By: Reena Redmond on 02-21-2025 Erythrocyte distribution width (RBC) [Ratio] 14.3 % 11.6-14.6 [facility] Erythrocyte distribution wid th standard deviationOrdered By: Reena Redmond on 02-21-2025 Erythrocyte distribution width (RBC) [Ratio] 45.8 fl High 35.1-43.9 [facility] Glomerular filtration rate ( GFR) estimation/1.73 sq m using serum, plasma, or whole bOrdered By: Reena Redmond on 02-21-2025 GFR/1.73 sq M.predicted among non-blacks MDRD (S/P/Bld) [Vol rate/Area] 61 mL/min/{1.73_m2} >60 [facility] Comment on above: mL/min/1.73m2 CKD-EP I Creatinine Equation (2020) Hematocrit Auto (Bld) [Volum e fraction]Ordered By: Reena Redmond on 02-21-2025 Hematocrit (Bld) [Volume fraction] 30.1 % Low 37-47 [facility] Hemoglobin measurementOrdere d By: Reena Redmond on 02-21-2025 Hemoglobin (Bld) [Mass/Vol] 10.7 g/dL Low 12.0-15.0 [facility] Immature granulocytes/100 WB C Auto (Bld)Ordered By: Reena Redmond on 02-21-2025 Immature granulocytes/100 WBC (Bld) 0.500 % 0.0-0.9 [facility] Comment on above: IG% - Immature Granu locytes (promyelocytes, myelocytes and metamyelocytes) > 1% indicates that a LEFT SHIFT is Present. MCV (mean corpuscular volume ) determinationOrdered By: Reena Redmond on 02-21-2025 MCV (RBC) [Entitic vol] 87.8 fL 81-99 [facility] Magnesiumon 02-21-2025 Magnesium [Mass/Vol] 1.5 mg/dL Normal 1.5-2.2 [facility] Comment on above: Performed By: #### L 500.2500, L501.5200 ####[facility] [address] [place], [address] Magnesium measurement (mass/ volume)Ordered By: Reena Redmond on 02-21-2025 Magnesium (Unsp spec) [Mass/Vol] 1.5 mg/dL 1.5-2.2 [facility] Mean corpuscular hemoglobin (MCH) determinationOrdered By: Reena Redmond on 02-21-2025 MCH (RBC) [Entitic mass] 31.2 pg 27.0-32.0 [facility] Mean corpuscular hemoglobin concentration (MCHC) determinationOrdered By: Reena Redmond on 02-21-2025 MCHC (RBC) [Mass/Vol] 35.5 g/dL 32-36 [facility] Mean platelet volume determi nationOrdered By: Reena Redmond on 02-21-2025 Platelet mean volume (Bld) [Entitic vol] 10.7 fL 6.2-12.0 [facility] Monocyte percentageOrdered B y: Reena Redmond on 02-21-2025 Monocytes/100 WBC (Bld) 8.8 % 0-10 [facility] Neutrophil percentageOrdered By: Reena Redmond on 02-21-2025 Neutrophils/100 WBC (Bld) 70.9 % High 47-70 [facility] Nucleated red blood cell per centageOrdered By: Reena Redmond on 02-21-2025 Nucleated RBC/100 WBC (Bld) [Ratio] 0 % 0-5 [facility] Phosphoruson 02-21-2025 Phosphate [Mass/Vol] 2.1 mg/dL Low 2.7-4.5 [facility] Comment on above: Performed By: #### L 100.0100, L501.2300 #### [facility] [address] [place], [address] Platelet countOrdered By: Rickey Redmond on 02-21-2025 Platelets (Bld) [#/Vol] 224 10*3/uL 150-450 [facility] Potassium measurement (mass/ volume)Ordered By: Reena Redmond on 02-21-2025 Potassium (Unsp spec) [Mass/Vol] 2.4 mmol/L Critically low 3.3-5.1 [facility] Comment on above: Critical Result(s) C alled at: 0636 02/21/2025 by: LAMONTE CUNHA Results read back by same. RBC Auto (Bld) [#/Vol]Ordere d By: Reena Redmond on 02-21-2025 RBC (Bld) [#/Vol] 3.43 10*6/uL Low 4.2-5.4 [facility] Serum creatinine measurement (mass/volume)Ordered By: Reena Redmond on 02-21-2025 Creatinine [Mass/Vol] 1.01 mg/dL 0.70-1.20 [facility] Serum glucose measurement (m ass/volume)Ordered By: Reena Redmond on 02-21-2025 Glucose [Mass/Vol] 99 mg/dL 70-99 [facility] Serum or plasma calcitriol m easurement (mass/volume)Ordered By: Reena Redmond on 02-21-2025 1,25-dihydroxyvitamin D3 [Mass/Vol] 95.0 pg/mL High 24.8-81.5 [facility] Comment on above: Performed at: [facility] [address] [id number] Director: Chantel Cordero MD, Phone: [phone] Serum or plasma calcium anam urement (mass/volume)Ordered By: Reena Redmond on 02-21-2025 Calcium [Mass/Vol] 12.3 mg/dL High 7.6-11.0 [facility] Serum or plasma urea nitroge n measurement (mass/volume)Ordered By: Reena Redmond on 02-21-2025 Urea nitrogen [Mass/Vol] 11 mg/dL 4-19 [facility] Sodium levelOrdered By: Deepika Redmond on 02-21-2025 Sodium [Moles/Vol] 148 mmol/L High 133-145 [facility] White blood cell (WBC) count Ordered By: Reena Redmond on 02-21-2025 WBC (Bld) [#/Vol] 8.5 10*3/uL 4.4-11.0 [facility] Absolute lymphocyte countOrd ered By: Crispin Xiong on 02-20-2025 Lymphocytes Auto (Unsp spec) [#/Vol] 1.74 10*3/uL 0.83-4.51 [facility] Absolute neutrophil countOrd ered By: Crispin Xiong on 02-20-2025 Neutrophils (Bld) [#/Vol] 5.7 10*3/uL 2.0-7.7 [facility] Anion gap in Serum or Plasma Ordered By: Crispin Xiong on 02-20-2025 Anion gap [Moles/Vol] 10 mmol/L 5- [facility] Automated lymphocyte count a s percentage of total leukocytesOrdered By: Crispin Xiong on 02-20-2025 Lymphocytes/100 WBC Auto (Unsp spec) 20.9 % - [facility] BUN/creatinine ratioOrdered By: Crispin Xiong on 02-20-2025 Urea nitrogen/Creatinine [Mass ratio] 12.9 mg/mg 10- [facility] Basophil percentageOrdered B y: Crispin Xiong on 02-20-2025 Basophils/100 WBC (Bld) 0.5 % 0-1 [facility] Bilirubin Test strip Ql (U)O rdered By: Crispin Xiong on 02-20-2025 Bilirubin Ql (U) Negative Negative [facility] Bilirubin, totalOrdered By: Crispin Xiong on 02-20-2025 Bilirubin [Mass/Vol] 0.61 mg/dL 0.00-1.30 [facility] Brain/Head without Contrasto n 02-20-2025 Brain/Head without Contrast [facility] Services [facility] [place] [address] Brain/Head without Contrast MR#: [id number] Acct: [id number] Name: KENTRELL VARGAS Rep #: [id number] : 1960 F 64 From: Jacques Nicolas MD PCP: Care Physician,No Primary Status: REG ER Study: Brain/Head without Contrast Date of Exam: 01/07 Exam# [id number] Ordering Dr: Crispin Xiong MD PROCEDURE: BRAIN/HEAD WITHOUT CONTRAST 02/20/2025 REASON FOR EXAM: INTERMITTENT BALANCE PROBLEMS, FORGETFULNESS TECHNIQUE: Procedure Code: CTBR Modality: CT Procedure: BRAIN/HEAD WITHOUT CONTRAST Coronal and Sagittal reconstruction series were provided. One or more dose reduction techniques were used (e.g., Automated exposure control, adjustment of the mA and/or kV according to patient size, use of iterative reconstruction technique. RADIATION DOSE SUMMARY: CTDlvol: 45 mGy DLP: 745 mGycm COMPARISON: None FINDINGS: Brain: There is no evidence of hemorrhage, acute ischemia or mass. No extra-axial fluid collection, midline shift or mass effect. Mild low-density in the periventricular white matter. CSF Spaces: Mild generalized cerebral atrophy Sinuses/Mastoids: Clear Bones: No fracture CT/Brain/Head without Contrast IMPRESSION: 1. No evidence of intracranial hemorrhage or acute ischemia. 2. Changes of chronic microvascular ischemia and volume loss. Reading Location: [facility] CC: Dr. Crispin Xiong MD; No Primary Care Physician Information Services Assistant: Signed Normal [facility] CBC W/Diff, Automatedon Absolute Lymph 1.74 X10 3/uL Normal 0.83-4.51 [facility] Comment on above: Performed By: #### L 100.0100, L506.0200 ####[facility] [address] [place], [place], [id number] Absolute Neut 5.7 X10 3/uL Normal 2.0-7.7 [facility] Comment on above: Performed By: #### L 100.0100, L506.0200 ####[facility] [address] [place], [address] Basophils/100 WBC (Bld) 0.5 % Normal 0-1 [facility] Comment on above: Performed By: #### L 100.0100, L506.0200 ####[facility] [address] [place], [address] Eosinophils/100 WBC (Bld) 1.1 % Normal 0-5 [facility] Comment on above: Performed By: #### L 100.0100, L506.0200 ####[facility] [address] [place], [address] Erythrocyte distribution width (RBC) [Ratio] 14.0 % Normal 11.6-14.6 [facility] Comment on above: Performed By: #### L 100.0100, L506.0200 ####[facility] [address] [place], [address] Hematocrit (Bld) [Volume fraction] 33.4 % Low 37-47 [facility] Comment on above: Performed By: #### L 100.0100, L506.0200 ####[facility] [address] [place], [address] Hemoglobin (Bld) [Mass/Vol] 11.8 g/dL Low 12.0-15.0 [facility] Comment on above: Performed By: #### L 100.0100, L506.0200 ####[facility] [address] [place], [address] IG% 0.500 Normal 0.0-0.9 [facility] Comment on above: Result Comment: IG% - Immature Granulocytes (promyelocytes, myelocytes and metamyelocytes) > 1% indicates that a LEFT SHIFT is Present. Performed By: #### L 100.0100, L506.0200 ####[facility] [address] [place], [address] Lymphocytes/100 WBC (Bld) 20.9 % Normal 19-41 [facility] Comment on above: Performed By: #### L 100.0100, L506.0200 ####[facility] [address] [place], [address] MCH (RBC) [Entitic mass] 30.6 pg Normal 27.0-32.0 [facility] Comment on above: Performed By: #### L 100.0100, L506.0200 ####[facility] [address] [place], [address] MCHC (RBC) [Mass/Vol] 35.3 g/dL Normal 32-36 [facility] Comment on above: Performed By: #### L 100.0100, L506.0200 ####[facility] [address] [place], [address] MCV (RBC) [Entitic vol] 86.5 fL Normal 81-99 [facility] Comment on above: Performed By: #### L 100.0100, L506.0200 ####[facility] [address] [place], [address] Monocytes/100 WBC (Bld) 9.1 % Normal 0-10 [facility] Comment on above: Performed By: #### L 100.0100, L506.0200 ####[facility] [address] [place], [address] Neutrophils/100 WBC (Bld) 67.9 % Normal 47-70 [facility] Comment on above: Performed By: #### L 100.0100, L506.0200 ####[facility] [address] [place], [address] Nucleated RBC (Bld) [#/Vol] 0 10*3/uL Normal 0-5 [facility] Comment on above: Performed By: #### L 100.0100, L506.0200 ####[facility] [address] [place], [address] Platelet mean volume (Bld) [Entitic vol] 10.0 fL Normal 6.2-12.0 [facility] Comment on above: Performed By: #### L 100.0100, L506.0200 ####[facility] [address] [place], [address] Platelets (Bld) [#/Vol] 235 10*3/uL Normal 150-450 [facility] Comment on above: Performed By: #### L 100.0100, L506.0200 ####[facility] [address] [place], [address] RBC (Bld) [#/Vol] 3.86 10*6/uL Low 4.2-5.4 [facility] Comment on above: Performed By: #### L 100.0100, L506.0200 ####[facility] [address] [place], [address] RDW SD 44.0 fl High 35.1-43.9 [facility] Comment on above: Performed By: #### L 100.0100, L506.0200 ####[facility] [address] [place], [address] WBC (Bld) [#/Vol] 8.3 10*3/uL Normal 4.4-11.0 [facility] Comment on above: Performed By: #### L 100.0100, L506.0200 ####[facility] [address] [place], [address] CT Chest, Abd, Pel w/Contras ton 02-20-2025 CT Chest, Abd, Pel w/Contrast [facility] Imaging Services [address] [place] [address] CT Chest, Abd, Pel w/Contrast MR#: [id number] Acct: [id number] Name: KENTRELL VARGAS Rep #: [id number] : 1960 F 64 From: León evangelista MD PCP: Care Physician,No Primary Status: ADM IN Study: CT Chest, Abd, Pel w/Contrast Date of Exam: Exam# [id number] Ordering Dr: Reena Redmond DO PROCEDURE: CT CHEST, ABD, PEL W/CONTRAST 02/20/2025 REASON FOR EXAM: HYPERCALCEMIA Dizziness. TECHNIQUE: Chest, abdomen and pelvis CT with intravenous contrast. Coronal and Sagittal reconstruction series were provided. One or more dose reduction techniques were used (e.g., Automated exposure control, adjustment of the mA and/or kV according to patient size, use of iterative reconstruction technique. PATIENT PREPARATION: Per protocol ORAL CONTRAST TYPE: None. CONTRAST: Isovue-300 VOLUME: 100mL RADIATION DOSE SUMMARY: CTDlvol: 11.2 mGy DLP: 916.16 mGycm COMPARISON: None FINDINGS: CT CHEST: Hardware: None Lymph nodes: No significant lymph nodes are seen. Heart and Vasculature: The heart is nonenlarged. Coronary artery calcification. Lungs and Airways: Increased linear markings in the lingular segment of the left upper lobe suggestive of scarring. Minimal scarring in the left lower lobe. No pulmonary nodule seen. Pleura: No pleural effusion. Bones: Degenerative changes of the thoracic spine. CT ABDOMEN/PELVIS: Liver: There is a 2 cm cyst in the posterior dome of the right lobe of the liver. There is also evidence of a 1.9 cm cyst in the inferior medial aspect of the right lobe of the liver. Gallbladder: Small gallstones. Spleen: Normal size. Pancreas: Diffuse fatty atrophy. Adrenals: Unremarkable Kidneys: Normal renal sizes. No hydronephrosis. Bladder: Distended urinary bladder. Reproductive Organs: Normal uterine size and contour. Ovaries are unremarkable. Bowel: Findings suggestive of possible colitis of the transverse colon. Appendix: The appendix is not identified. There is no inflammatory process identified in the right lower quadrant to suggest appendicitis. Lymph nodes: Unremarkable. Vasculature: Mild diffuse atherosclerotic calcifications are noted. Peritoneum / Retroperitoneum: Unremarkable Bones: Degenerative changes of the spine. Grade 1 anterior listhesis of L4 on L5 without spondylolysis. CT/CT Chest, Abd, Pel w/Contrast IMPRESSION: Mild scarring in the lingular segment of the left upper lobe and left lower lobe. Coronary artery calcification. Multiple gallstones. Fatty infiltration of the pancreas. Findings suggestive of possible colitis of the transverse colon. Reading Location: [id number] CC: Dr. Reena Redmond, DO; No Primary Care Physician Information Services Assistant: Signed Normal [facility] Carbon dioxide, total [Moles /volume] in Central venous bloodOrdered By: Crispin Xiong on 02-20-2025 CO2 [Moles/Vol] 30.5 mmol/L 21.0-32.0 [facility] Chloride assayOrdered By: Ug o Xiong on 02-20-2025 Chloride [Moles/Vol] 101 mmol/L 98-108 [facility] Comprehensive Metabolic Prof ilon 02-20-2025 Albumin [Mass/Vol] 4.1 g/dL Normal 3.4-4.8 [facility] Comment on above: Performed By: #### L 503.0106, L501.9520, L500.4050 ####[facility] [address] [place], [address] Albumin/Globulin [Mass ratio] 1.6 {ratio} Normal 0.9-2.4 [facility] Comment on above: Performed By: #### L 503.0106, L501.9520, L500.4050 ####[facility] [address] [place], [address] ALK PHOS 53 U/L Normal 35-104 [facility] Comment on above: Performed By: #### L 503.0106, L501.9520, L500.4050 ####[facility] [address] [place], [address] ALT [Catalytic activity/Vol] 15 U/L Normal <=34 [facility] Comment on above: Performed By: #### L 503.0106, L501.9520, L500.4050 ####[facility] [address] [place], [address] AST [Catalytic activity/Vol] 23 U/L Normal <=31 [facility] Comment on above: Performed By: #### L 503.0106, L501.9520, L500.4050 ####[facility] [address] [place], [address] Bilirubin [Mass/Vol] 0.61 mg/dL Normal 0.00-1.30 [facility] Comment on above: Performed By: #### L 503.0106, L501.9520, L500.4050 ####[facility] [address] [place], [address] BUN/CRE 12.9 RATIO Normal 10-20 [facility] Comment on above: Performed By: #### L 503.0106, L501.9520, L500.4050 ####[facility] [address] [place], [address] Calcium [Mass/Vol] 14.7 mg/dL Invalid Interpretation Code 7.6-11.0 [facility] Comment on above: Result Comment: Crit ical Result(s) Called to: Maru SOLIS (ER) by: Kiara??Results read back by same. Performed By: #### L 503.0106, L501.9520, L500.4050 ####[facility] [address] [place], [address] Chloride [Moles/Vol] 101 mmol/L Normal 98-108 [facility] Comment on above: Performed By: #### L 503.0106, L501.9520, L500.4050 ####[facility] [address] [place], [address] CO2 [Moles/Vol] 30.5 mmol/L Normal 21.0-32.0 [facility] Comment on above: Performed By: #### L 503.0106, L501.9520, L500.4050 ####[facility] [address] [place], [address] Creatinine [Mass/Vol] 1.23 mg/dL High 0.70-1.20 [facility] Comment on above: Performed By: #### L 503.0106, L501.9520, L500.4050 ####[facility] [address] [place], [address] ECRCL 44.69 ml/min Low 50-250 [facility] Comment on above: Performed By: #### L 503.0106, L501.9520, L500.4050 ####[facility] [address] [place], [address] GAP 10 Normal 5-15 [facility] Comment on above: Performed By: #### L 503.0106, L501.9520, L500.4050 ####[facility] [address] [place], [address] GFR/1.73 sq M.predicted among non-blacks MDRD (S/P/Bld) [Vol rate/Area] 48 mL/min/{1.73_m2} Low >60 [facility] Comment on above: Result Comment: mL/m in/1.73m2 CKD-EPI Creatinine Equation (2020) Performed By: #### L 503.0106, L501.9520, L500.4050 ####[facility] [address] [place], [address] Globulin (S) [Mass/Vol] 2.6 g/dL Normal 2.2-4.2 [facility] Comment on above: Performed By: #### L 503.0106, L501.9520, L500.4050 ####[facility] [address] [place], [address] Glucose [Mass/Vol] 113 mg/dL High 70-99 [facility] Comment on above: Performed By: #### L 503.0106, L501.9520, L500.4050 ####[facility] [address] [place], [address] Potassium [Moles/Vol] 2.3 mmol/L Invalid Interpretation Code 3.3-5.1 [facility] Comment on above: Result Comment: Crit ical Result(s) Called to: Maru SOLIS (ER) by: Kiara??Results read back by same. Performed By: #### L 503.0106, L501.9520, L500.4050 ####[facility] [address] [place], [address] Sodium [Moles/Vol] 141 mmol/L Normal 133-145 [facility] Comment on above: Performed By: #### L 503.0106, L501.9520, L500.4050 ####[facility] [address] [place], [address] T PROT 6.7 g/dL Normal 5.9-8.4 [facility] Comment on above: Performed By: #### L 503.0106, L501.9520, L500.4050 ####[facility] [address] [place], [address] Urea nitrogen [Mass/Vol] 16 mg/dL Normal 4-19 [facility] Comment on above: Performed By: #### L 503.0106, L501.9520, L500.4050 ####[facility] [address] [place], [address] Emergency Department Summary on 02-20-2025 Emergency Department Summary [facility] Medical Records Department [address] [place] [address] Emergency Department Summary 02/20/25 MR#: [id number] Acct: [id number] Name: KENTRELL VARGAS Rep #: [id number] : 1960 64 From: Crispin Xiong MD PCP: Care Physician,No Primary Status:REG ER Location: ED HPI History of Present Illness Chief Complaint: Hypertension Detail of Chief Complaint: Intermittent "dizziness ", fogginess, blood pressure noted to be elevated t Informant: patient Onset/Context/Timing Onset: Today (Blood pressure 192/112 at work) and Month(s) (Other symptoms have been intermittent for over the past several months) Context: Sudden Onset Timing: Intermittent Quality: Dizziness, forgetfulness, feeling foggy Location: Not applicable Current Severity: Gone (Except blood pressure is elevated) Maximum Severity: Moderate Worsened by: Nothing Relieved by: Nothing Associated Symptoms Associated Symptoms: Nothing Narrative Narrative: Patient is a 64-year-old woman who has not seen a physician in 26 years who experienced dizziness today described as her balance being off. It is not positional. There is no associated double vision, blurred vision or loss of vision. She has had no trouble with speech or swallowing. She denies paresthesia, anesthesia or weakness of her upper or lower extremities. She denies headache. She denies nausea or vomiting. She denies black or maroon-colored stool. She has had intentional weight loss of approximately 40 pounds. There is no history of trauma. Patient does endorse thirst and dry mouth. She has had some increased urination as well Prior similar symptoms: No Recent Illness/Hospitalizati on: No PFSH PFSH Medical History no medical history no medical history Allergy/AdvReac Type Severity Reaction Status Date / Time No Known Allergies Allergy Verified 02/20/25 10:16 Surgical History no surgical history no surgical history Social History Smoking Status: Never smoker [facility] ED Constitutional Constitutional ED: Reports weight loss; Denies chills, fever(s), subjective or sweats Eyes Eyes: Reports other Details: She is scheduled for an eye appointment. Her insurance pays for new eyeglasses every 3 years. ; Denies blurry vision, change in vision or diplopia ENT ENT ED: Denies ear pain, rhinorrhea or sore throat Cardiovascular Cardiovascular: Denies chest pain, orthopnea, palpitations, paroxysmal nocturnal dyspnea or racing heartbeat Respiratory/Chest Respiratory/Chest: Denies cough, dyspnea, dyspnea on exertion, orthopnea or paroxysmal nocturnal dyspnea Gastrointestinal Gastrointestinal: Denies abdominal pain, nausea or vomiting Genitourinary Genitourinary ED: Denies dysuria, hematuria or urinary frequency Musculoskeletal Musculoskeletal: Denies arthralgias, back pain, myalgias or neck pain Integumentary Denies rash Neurologic Neurologic: Reports other Details: Detailed HPI narrative ; Denies headache(s), paresthesias or weakness Psychiatric Psychiatric: Denies anxiety or depression Endocrine Endocrinology: Denies cold intolerance or heat intolerance Hematologic/Lymphatic Hematologic/Lymphatic : Reports systems reviewed and no addt'l complaints, except as documented EXAM Physical Exam Const Vital Signs: 02/20/25 10:15 02/20/25 10:50 02/20/25 12:17 Temperature 97.6 F L Temperature Source Oral Pulse Rate 96 79 Respiratory Rate 18 16 Respiratory Effort Normal Non-Labored Respiratory Pattern Normal Blood Pressure 186/90 H 192/79 H Blood Pressure Mean 122 116 Pulse Ox 99 100 Oxygen Delivery Method Room Air Room Air Positive well nourished and well developed Constitutional Narrative: Blood pressure is elevated. General Appearance ED: well developed and NAD; Negative for pallor HEENT Reports moist mucous membranes HEENT Narrative: Head is atraumatic and normocephalic. Ears normal. Nares patent. Posterior pharynx is unremarkable. Uvula midline. No deviation tongue or protrusion. Eyes PERRL and EOMs intact bilaterally Eyes Narrative: There is no nystagmus. General Eye ED: Negative for pale conjunctiva or scleral icterus Neck no lymphadenopathy, supple and no JVD Chest Wall inspection of chest normal and palpation of chest normal Resp normal respiratory effort and clear to auscultation bilaterally Cardio regular rate, regular rhythm, S1 normal heart sound, S2 normal heart sound and no murmurs GI normal to inspection, nondistended, normoactive bowel sounds, non-tender, non-distended and no masses; Negative for hepatosplenomegaly Back/Spine no CVA tenderness Extremity normal to inspection General Extremety ED: Negative for edema or tenderness General Extremity: Negative for edema Neuro oriented x3, CN's II-XII intact bilaterall (more content not included)... Normal [facility] Eosinophil percentageOrdered By: Crispin Xiong on 02-20-2025 Eosinophils/100 WBC (Bld) 1.1 % 0-5 [facility] Erythrocyte Sed Rateon 02-20 SED RATE 13 mm/hr Normal 0-30 [facility] Comment on above: Performed By: #### L 101.9900, L501.5200, L509.1000, L506.1001 ####[facility] [address] [place], [place], [id number] Erythrocyte distribution wid th ratioOrdered By: Crispin Xiong on 02-20-2025 Erythrocyte distribution width (RBC) [Ratio] 14.0 % 11.6-14.6 [facility] Erythrocyte distribution wid th standard deviationOrdered By: Crispin Xiong on 02-20-2025 Erythrocyte distribution width (RBC) [Ratio] 44.0 fl High 35.1-43.9 [facility] Erythrocyte sedimentation ra teOrdered By: Crispin Xiong on 02-20-2025 ESR (Bld) [Velocity] 13 mm/h 0-30 [facility] Folate [Mass/volume] in Seru m or PlasmaOrdered By: Crispin Xiong on 02-20-2025 Folate [Mass/Vol] 18.10 ng/mL 4.60-34.80 [facility] Comment on above: Hemolysis, Results w ill be affected, Requires Recollection. Folates,Serum (Folic Acid)on 02-20-2025 FOLATES,SERUM 18.10 ng/mL Normal 4.60-34.80 [facility] Comment on above: Result Comment: Hemo lysis, Results will be affected, Requires Recollection. Performed By: #### L 100.0100, L506.0200 ####[facility] [address] [place], [place], [id number] Glomerular filtration rate ( GFR) estimation/1.73 sq m using serum, plasma, or whole bOrdered By: Crispin Xiong on 02-20-2025 GFR/1.73 sq M.predicted among non-blacks MDRD (S/P/Bld) [Vol rate/Area] 48 mL/min/{1.73_m2} Low >60 [facility] Comment on above: mL/min/1.73m2 CKD-EP I Creatinine Equation (2020) H AND P Exam - Hospitaliston 02-20-2025 H&P Exam - Hospitalist [facility] Medical Records Department [address] [place] [address] H P Exam - Hospitalist 02/20/25 1235 MR#: [id number] Acct: [id number] Name: KENTRELL VARGAS Rep #: [id number] : 1960 64 From: Reena Redmond DO PCP: Care Physician,No Primary Status:ADM IN Location: [place] [address] HPI - General General Date of Admission: 02/20/25 Date of Service: 02/20/25 Chief Complaint: Intermittent dizziness/fogginess HPI Narrative KENTRELL VARGAS, is a 64 F who presented to the emergency department at [facility] on 02/20/2025 with chief complaint of forgetfulness, some dizziness, fogginess feeling of elevated blood pressure. Patient has not seen a physician since she turned 48. She also feels off balance and generally fatigued. She did complain of some thirst and having a dry mouth and some increased urination and has had an intentional weight loss of 40 pounds. Vital signs on presentation showed a temperature of 97.6, heart rate was 96, respiratory was 18, blood pressure was 186/90 and pulse ox was 99% on room air. CBC showed a normal white count with a mild anemia having a hemoglobin 11.8. Differential is unremarkable. Chemistry panel showed a potassium of 2.3 with a BUN of 16 and serum creatinine 1.23. Her calcium was markedly elevated at 14.7 with an elevated ionized calcium at 1.54. TSH, folic acid, and B12 were all within normal limits. Her urinalysis was overtly unremarkable. The emergency department sent off an intact PTH and I added on a vitamin D25 and [address] of the brain was unremarkable for any acute findings. Patient was started on aggressive IV fluids and request for admission was made. COUNT INCLUDES [facility] Medical History no medical history no medical history Allergy/AdvReac Type Severity Reaction Status Date / Time No Known Allergies Allergy Verified 02/20/25 10:16 Family History no significant family his no significant family history Surgical History no surgical history no surgical history Social History (Updated 02/20/25 @ 19:[address] Reena Redmond DO) household members: spouse housing: house Smoking Status: Never smoker alcohol intake: current alcohol intake frequency: holidays/special occasions only substance use type: does not use ROS Constitutional Constitutional: Reports change in weight, fatigue and weakness; Denies anorexia, chills, fever(s), malaise, night sweats or other Eyes Eyes: Denies blurry vision, change in eye color, change in vision, discharge from eye(s), double vision, erythema, eye pain, loss of vision or other ENT HEENT: Denies abnormal hearing, dysphagia, ear pain, epistaxis, headache(s), hearing loss, nasal congestion, nasal discharge, post nasal drip, sinus pressure, sore throat or other Cardiovascular Cardiovascular: Denies chest pain, claudication, dyspnea on exertion, edema, lightheadedness, orthopnea, palpitations, paroxysmal nocturnal dyspnea, rapid heart rate, syncope or other Respiratory/Chest Respiratory/Chest: Denies cough, dyspnea, excessive phlegm production, hemoptysis, productive cough, shortness of breath at rest, shortness of breath with exertion, wheezing or other Gastrointestinal Gastrointestinal: Reports constipation; Denies abdominal pain, coffee ground emesis, diarrhea, dyspepsia, hematemesis, hematochezia, loose stools, melena, nausea, vomiting or other Genitourinary Genitourinary: Reports urinary frequency; Denies burning urination, difficulty urinating, dysuria, hematuria, nocturia, urinary hesitancy, urinary incontinence, urinary urgency or other Musculoskeletal Musculoskeletal: Reports myalgias and other Details: Generalized weakness ; Denies arthralgias, back pain, joint pain, joint stiffness, joint swelling or neck pain Neurologic Neurologic: Reports abnormal gait and disequilibrium; Denies abnormal speech, confusion, dizziness, focal weakness, headache(s), numbness, paresthesias, seizure-like activity, seizures, syncope, tingling, tremor(s) or other Psychiatric Psychiatric: Denies anxiety, depression, homicidal ideation, suicidal ideation or other Endocrine Endocrinology: Denies change in body appearance, cold intolerance, excessive sweating, heat intolerance, polydipsia, polyuria or other Hematologic/Lymphatic Hematologic/Lymphatic : Denies anemia, easy bleeding, easy bruising, lymphadenopathy or other Allergic/Immunologic Allergic/Immunologic: Denies rhinitis, hives, eczemia, asthma or other Vital Signs Vital Signs Vital Signs: 02/20/25 10:15 02/20/25 10:50 02/20/25 12:17 Temperature 97.6 F L Temperature Source Oral Pulse Rate 96 79 Respiratory Rate 18 16 Respiratory Effort Normal Non-Labored Respiratory Pattern Normal Blood Pressure 186/90 H 192/79 H Blood Pressure Mean 122 116 Pulse Ox 99 100 Oxygen Delivery Method Room (more content not included)... Normal [facility] Hematocrit Auto (Bld) [Volum e fraction]Ordered By: Crispin Xiong on 02-20-2025 Hematocrit (Bld) [Volume fraction] 33.4 % Low 37-47 [facility] Hemoglobin measurementOrdere d By: Crispin Xiong on 02-20-2025 Hemoglobin (Bld) [Mass/Vol] 11.8 g/dL Low 12.0-15.0 [facility] Immature granulocytes/100 WB C Auto (Bld)Ordered By: Crispinguerline Xiong on 02-20-2025 Immature granulocytes/100 WBC (Bld) 0.500 % 0.0-0.9 [facility] Comment on above: IG% - Immature Granu locytes (promyelocytes, myelocytes and metamyelocytes) > 1% indicates that a LEFT SHIFT is Present. Ketones Test strip Ql (U)Ord ered By: Crispin Xiong on 02-20-2025 Ketones Ql (U) Negative Negative [facility] L501.2276on 02-20-2025 Ionized Calcium 1.55 mmol/L High 1.09-1.30 [facility] Comment on above: Order Comment: REPEA T TEST NOT NEEDED. Result Comment: REPE AT TEST NOT NEEDED. Performed By: #### L 501.2276 ####[facility] [address] [place], [place], [id number] Ionized Calcium 1.53 mmol/L High 1.09-1.30 [facility] Comment on above: Performed By: #### L 501.2276 #### [facility] Laboratory [address] [place], [place], [address] Laboratory - Chemistry and C hemistry - challengeOrdered By: Crispinguerline Xiong on 02-20-2025 AST [Catalytic activity/Vol] 23 U/L <32 [facility] MCV (mean corpuscular volume ) determinationOrdered By: Crispinguerline Xiong on 02-20-2025 MCV (RBC) [Entitic vol] 86.5 fL 81-99 [facility] Magnesiumon 02-20-2025 Magnesium [Mass/Vol] 1.5 mg/dL Normal 1.5-2.2 [facility] Comment on above: Performed By: #### L 101.9900, L501.5200, L509.1000, L506.1001 ####[facility] [address] [place], [address] Magnesium measurement (mass/ volume)Ordered By: Crispin Xiong on 02-20-2025 Magnesium (Unsp spec) [Mass/Vol] 1.5 mg/dL 1.5-2.2 [facility] Mean corpuscular hemoglobin (MCH) determinationOrdered By: Crispin Xiong on 02-20-2025 MCH (RBC) [Entitic mass] 30.6 pg 27.0-32.0 [facility] Mean corpuscular hemoglobin concentration (MCHC) determinationOrdered By: Crispin Xiong on 02-20-2025 MCHC (RBC) [Mass/Vol] 35.3 g/dL 32-36 [facility] Mean platelet volume determi nationOrdered By: Crispin Xiong on 02-20-2025 Platelet mean volume (Bld) [Entitic vol] 10.0 fL 6.2-12.0 [facility] Microscopic analysis of urin e for red blood cells (RBC)Ordered By: Crispin Xiong on 02-20-2025 Microscopic analysis of urine for red blood cells (RBC) 0-5 SEEN /hpf 0-5 [facility] Monocyte percentageOrdered B y: Crispin Xiong on 02-20-2025 Monocytes/100 WBC (Bld) 9.1 % 0-10 [facility] Mucus LM Ql (Urine sed)Order ed By: Crispin Xiong on 02-20-2025 Mucus Ql (Urine sed) 0 SEEN /hpf [facility] Neutrophil percentageOrdered By: Crispin Xiong on 02-20-2025 Neutrophils/100 WBC (Bld) 67.9 % 47-70 [facility] Nitrite Test strip Ql (U)Ord ered By: Crispin Xiong on 02-20-2025 Nitrite Ql (U) Negative Negative [facility] Nucleated red blood cell per centageOrdered By: Crispin Xiong on 02-20-2025 Nucleated RBC/100 WBC (Bld) [Ratio] 0 % 0-5 [facility] PTHINon 02-20-2025 PTH 14 pg/mL Normal 11-61 [facility] Comment on above: Performed By: #### L 101.9900, L501.5200, L509.1000, L506.1001 ####[facility] [address] [place], [address] Platelet countOrdered By: Mali Xiong on 02-20-2025 Platelets (Bld) [#/Vol] 235 10*3/uL 150-450 [facility] Potassium measurement (mass/ volume)Ordered By: Crispin Xiong on 02-20-2025 Potassium (Unsp spec) [Mass/Vol] 2.3 mmol/L Critically low 3.3-5.1 [facility] Comment on above: Critical Result(s) C alled to: Maru RN (ER) by: Kiara Results read back by same. Protein Test strip Ql (U)Ord ered By: Crispin Xiong on 02-20-2025 Protein Ql (U) 30 mg/dl High Negative [facility] RBC Auto (Bld) [#/Vol]Ordere d By: Crispin Xiong on 02-20-2025 RBC (Bld) [#/Vol] 3.86 10*6/uL Low 4.2-5.4 [facility] Serum creatinine measurement (mass/volume)Ordered By: Crispin Xiong on 02-20-2025 Creatinine [Mass/Vol] 1.23 mg/dL High 0.70-1.20 [facility] Serum globulin measurementOr dered By: Crispin Xiong on 02-20-2025 Globulin (S) [Mass/Vol] 2.6 g/dL 2.2-4.2 [facility] Serum glucose measurement (m ass/volume)Ordered By: Crispin Xiong on 02-20-2025 Glucose [Mass/Vol] 113 mg/dL High 70-99 [facility] Serum or plasma alanine velez otransferase (ALT) measurementOrdered By: Crispinguerline Xiong on 02-20-2025 ALT [Catalytic activity/Vol] 15 U/L <35 [facility] Serum or plasma albumin anam urement (mass/volume)Ordered By: Crispinguerline Xiong on 02-20-2025 Albumin [Mass/Vol] 4.1 g/dL 3.4-4.8 [facility] Serum or plasma albumin/glob ulin mass ratioOrdered By: Crispinguerline Xiong on 02-20-2025 Albumin/Globulin [Mass ratio] 1.6 {ratio} 0.9-2.4 [facility] Serum or plasma alkaline marely sphatase measurementOrdered By: Crispin Xiong on 02-20-2025 ALP [Catalytic activity/Vol] 53 U/L 35-104 [facility] Serum or plasma calcium anam urement (mass/volume)Ordered By: Crispinguerline Xiong on 02-20-2025 Calcium [Mass/Vol] 14.7 mg/dL Critically high 7.6-11.0 [facility] Comment on above: Critical Result(s) C alled to: Maru SOLIS (ER) by: Kiara Results read back by same. Serum or plasma urea nitroge n measurement (mass/volume)Ordered By: Crispin Xiong on 02-20-2025 Urea nitrogen [Mass/Vol] 16 mg/dL 4-19 [facility] Sodium levelOrdered By: Crispinguerline Xiong on 02-20-2025 Sodium [Moles/Vol] 141 mmol/L 133-145 [facility] Squamous epithelial cells de tection in urine sediment by light microscopyOrdered By: Crispin Xiong on 02-20-2025 Epithelial cells.squamous LM Ql (Urine sed) 5-10 SEEN /hpf 5-10 [facility] TSH DL <= 0.005 mIU/L QnOrde red By: Crispin Xiong on 02-20-2025 TSH Qn 3.250 uIU/mL 0.300-4.200 [facility] Thyroid Stim Hormone (TSH)on 02-20-2025 TSH 3.250 uIU/mL Normal 0.300-4.200 [facility] Comment on above: Performed By: #### L 503.0106, L501.9520, L500.4050 ####[facility] [address] [place], [address] Total proteinOrdered By: Crispin Xiong on 02-20-2025 Protein [Mass/Vol] 6.7 g/dL 5.9-8.4 [facility] Urinalysis, Completeon 02-20 BACTERIA 1+ /hpf Normal None Seen [facility] Comment on above: Order Comment: CLEAN CATCH Performed By: #### L 400.0001 ####[facility] [address] [place], [address] EPI,SQUAMOUS 5-10 SEEN Normal 5-10 [facility] Comment on above: Order Comment: CLEAN CATCH Performed By: #### L 400.0001 ####[facility] [address] [place], [address] RBC 0-5 SEEN Normal 0-5 [facility] Comment on above: Order Comment: CLEAN CATCH Performed By: #### L 400.0001 ####[facility] [address] [place], [address] WBC 0-5 SEEN Normal 0-5 [facility] Comment on above: Order Comment: CLEAN CATCH Performed By: #### L 400.0001 ####[facility] [address] [place], [address] Mucus Ql (Urine sed) 0 SEEN Normal [facility] Comment on above: Order Comment: CLEAN CATCH Performed By: #### L 400.0001 ####[facility] [address] [place], [address] Urine clarityOrdered By: Crispin Xiong on 02-20-2025 Clarity (U) Clear Clear [facility] Urine color determinationOrd ered By: Crispin Xiong on 02-20-2025 Color (U) Yellow Yellow [facility] Urine glucose detectionOrder ed By: Crispin Xiong on 02-20-2025 Glucose Ql (U) Normal mg/dl Normal [facility] Urine leukocyte esterase det ection by dipstickOrdered By: Crispin Xiong on 02-20-2025 Leukocyte esterase Test strip Ql (U) 25 /ul High Negative [facility] Urine pHOrdered By: Crispin cunha on 02-20-2025 pH (U) 6.5 [pH] 5.0 - 8.0 [facility] Urine sediment bacteria coun t by microscopy (number/high power field)Ordered By: Crispin Xiong on 02-20-2025 Bacteria LM.HPF (Urine sed) [#/Area] 1 /[HPF] None Seen [facility] Urine specific gravity measu rementOrdered By: Crispinguerline Xiong on 02-20-2025 Specific gravity (U) [Rel density] 1.010 1.002-1.030 [facility] Urine urobilinogen measureme ntOrdered By: Crispin Xiong on 02-20-2025 Urobilinogen Ql (U) Normal mg/dl Normal [facility] Vitamin B12on 02-20-2025 Cobalamin (Vitamin B12) [Mass/Vol] 421 pg/mL Normal 180-914 [facility] Comment on above: Performed By: #### L 503.0106, L501.9520, L500.4050 ####[facility] [address] [place], [place], [address] Vitamin B12 ser/plasOrdered By: Crispin Xiong on 02-20-2025 Cobalamin (Vitamin B12) [Mass/Vol] 421 pg/mL 180-914 [facility] Vitamin D,25 Hydroxyon 02-20 Vitamin D 25-OH > 240.0 High 30-100 [facility] Comment on above: Result Comment: Janina min D Status Deficiency: <20 ng/mL (50nmol/L) Insufficiency: 20-30 ng/mL (50-75 nmol/L) Sufficiency: 30-100 ng/mL (75-250 nmol/L) Toxicity: >100 ng/mL (>250 nmol/L) Performed By: #### L 101.9900, L501.5200, L509.1000, L506.1001 ####[facility] [address] [place], [address] White blood cell (WBC) count Ordered By: Crispin Xiong on 02-20-2025 WBC (Bld) [#/Vol] 8.3 10*3/uL 4.4-11.0 [facility] White blood cell countOrdere d By: Crispin Xiong on 02-20-2025 White blood cell count 0-5 SEEN /hpf 0-5 [facility] Vital Signs Date Time Vital Sign Value Performing Clinician Faci lity 02-21-2025 12:05-0400 Body temperature 98 [degF] Dr. Crispin Xiong MD Work Phone: 0(643)574-451105 [place] [address] 02-21-2025 12:05-0400 Diastolic blood pressure 89 mm[Hg] Dr. Crispin Xiong MD Work Phone: 7(943)985-918705 [place] [address] 02-21-2025 12:05-0400 Heart rate 85 /min Dr. Crispin Xiong MD Work Phone: 8(359)686-416405 [place] [address] 02-21-2025 12:05-0400 Respiratory rate 16 /min Dr. Crispin Xiong MD Work Phone: 9(445)609-953005 [place] [address] 02-21-2025 12:05-0400 SaO2% (BldA) [Mass fraction] 98 % Dr. Crispin Xiong MD Work Phone: 4(405)391-394305 [place] [address] 02-21-2025 12:05-0400 Systolic blood pressure 154 mm[Hg] Dr. Crispin Xiong MD Work Phone: 1(482)901-171405 [place] [address] 02-20-2025 13:42-0400 Body temperature 97.2 [degF] Dr. Crispin Xiong MD Work Phone: 4(152)006-351405 [place] [address] 02-20-2025 13:42-0400 Diastolic blood pressure 101 mm[Hg] Dr. Crispin Xiong MD Work Phone: 4(577)400-036705 [place] [address] 02-20-2025 13:42-0400 Heart rate 85 /min Dr. Crispin Xiong MD Work Phone: 8(852)390-851505 [place] [address] 02-20-2025 13:42-0400 Respiratory rate 24 /min Dr. Crispin Xiong MD Work Phone: 1(609)624-173305 [place] [address] 02-20-2025 13:42-0400 SaO2% (BldA) [Mass fraction] 100 % Dr. Crispin Xiong MD Work Phone: 3(217)092-442405 [place] [address] 02-20-2025 13:42-0400 Systolic blood pressure 197 mm[Hg] Dr. Crispin Xiong MD Work Phone: 0(319)617-170905 [place] [address] 02-20-2025 13:40-0400 Body height 162.[address] Crispin Xiong MD Work Phone: 6(141)623-914905 [place] [address] 02-20-2025 13:40-0400 Body mass index (BMI) [Ratio] 28.3 kg/m2 Dr. Crispin Xiong MD Work Phone: 1(988)692-204205 [place] [address] 02-20-2025 13:40-0400 Body weight 75.[address] Crispin Xiong MD Work Phone: 6(867)554-753705 [place] [address] 02-20-2025 10:15-0400 Body height 162.[address] Crispin Xiong MD Work Phone: 5(814)226-139005 [place] [address] 02-20-2025 10:15-0400 Body mass index (BMI) [Ratio] 28.5 kg/m2 Dr. Crispin Xiong MD Work Phone: 6(483)317-563805 [place] [address] 02-20-2025 10:15-0400 Body weight 75.[address] Crispin Xiong MD Work Phone: 9(375)051-601605 [place] [address] Encounters Encounter Date Encounter Type Care Provider Facility Start: 02-21-2025 Non-patient / Non-visit Dr. Reena Redmond DO [facility] Work Phone: Start: 02-20-2025 ambulatory Reena Redmond Facility:[facility] Start: 02-20-2025 End: 02-21-2025 Evaluation and management of inpatient Dr. Reena Redmond DO [facility] Care Unit Work Phone: Procedures Date Procedure Procedure Detail Performing Clinician Start: 02-21-[address] Crispin cuba MD Work Phone: Start: 02-21-[address] Crispin Xiong MD Work Phone: Comment on above: Test Ordered: [id number] PTHrP (PTH-Related Peptide)PTHrP (PTH-Related Peptide) <2.0 pmol/L Reference Range: .This test was developed and its performance characteristicsdetermined by [employer]. It has not been cleared or approvedby the Food and Drug Administration.Reference Range:All Ages: <2.0The PTHrP assay should not be used to exclude cancer orscreen tumor patients for humoral hypercalcemia ofmalignancy (HHM). The results should always be assessed inconjunction with the patient's medical history, clinicalexamination, and other findings. If test results areclinically discordant, please contact the laboratory.Performed at: [facility] [address] [id number] Director: Nicole Mayo MD, Phone: [phone] at: [facility] [id number] Director: Amilcar Garcia PhD, Phone: [phone] Start: 02-21-2025 Serum inorganic phosphate measurement Dr. Crispin Xiong MD Work Phone: Start: 02-20-[address] Crispin Xiong MD Work Phone: Start: 02-20-2025 CT of thorax, abdomen and pelvis with contrast Dr. Crispin Xiong MD Work Phone: Start: 02-20-[address] Crispin Xiong MD Work Phone: Start: 02-20-2025 Urnls dip stick/tablet reagent auto microscopy Dr. Crispin Xiong MD Work Phone: Start: 02-20-[address] Crispin cuba MD Work Phone: Start: 02-20-2025 Vitamin D, 25-hydroxy measurement Dr. Mali Xiong MD Work Phone: Comment on above: Vitamin D StatusDeficiency: <20 ng/mL (5 0nmol/L)Insufficiency: 20-30 ng/mL (50-75 nmol/L)Sufficiency: 30-100 ng/mL (75-250 nmol/L)Toxicity: >100 ng/mL (>250 nmol/L) Start: 02-20-2025 CT of head without contrast Dr. Crispin cunha MD Work Phone: Plan of Treatment Date Care Activity Detail Author Start: 02-25-[address] [facility] Start: 02-24-[address] [facility] Start: 02-23-[address] [facility] Start: 02-22-[address] [facility] Start: 02-21-2025 Patient discharge [facility] Start: 02-21-2025 Serum inorganic phos phate measurement [facility] Start: 02-21-[address] [facility] Start: 02-20-2025 Chemotherapy care management [facility] Start: 02-20-2025 End: 02-20-2025 Following clinical pathway protocol [facility] Start: 02-20-2025 Assessment of risk o f venous thromboembolism [facility] Start: 02-20-2025 Incentive spirometry [facility] Start: 02-20-2025 Inhalation therapy procedure [facility] Start: 02-20-2025 Insertion of cathete r into peripheral vein [facility] Start: 02-20-2025 Measuring intake and output [facility] Start: 02-20-2025 Providing care accor ding to standard [facility] Start: 02-20-2025 Referral for physica l therapy [facility] Start: 02-20-2025 Referral to occupati onal therapist [facility] Start: 02-20-2025 Referral to service [facility] Start: 02-20-[address] [facility] Start: 02-20-2025 CT Abdomen and Pelvi s W contrast IV [facility] Start: 02-20-2025 CT of thorax, abdome n and pelvis with contrast CT Chest, Abd, Pel w/Contrast [facility] Start: 02-20-2025 Verification routine [facility] Start: 02-20-2025 Admission procedure [facility] Start: 02-20-2025 Vitamin D, 25-hydrox y measurement [facility] Anion gap in Serum or Plasma [facility] BUN/Creatinine ratio [facility] Calcium [Mass/volume ] in Serum or Plasma [facility] Carbon dioxide, tota l [Moles/volume] in Central venous blood [facility] Creatinine [Mass/vol ume] in Serum or Plasma [facility] Erythrocyte mean cor puscular volume determination [facility] Glucose [Mass/volume ] in Serum or Plasma [facility] Hematocrit [Volume F raction] of Blood [facility] Hemoglobin [Mass/vol ume] in Blood [facility] Leukocytes [#/volume ] in Blood [facility] Magnesium measurement [facility] Mean corpuscular hem oglobin concentration determination [facility] Mean corpuscular hem oglobin determination [facility] Measurement of renal function [facility] Neutrophil count [facility] Neutrophil percent differential count [facility] Platelets [#/volume] in Blood [facility] Potassium measurement [facility] Red blood cell count [facility] Red cell distributio n width determination [facility] Serum chloride measurement [facility] Sodium measurement [facility] Urea nitrogen [Mass/ volume] in Serum or Plasma [facility] Immunizations Immunization Date Immunization Notes Care Provider Josef avelar 02-21-2025 influenza, high dose seasonal, preservative-free Dr. Crispin Xiong MD Work Phone: [facility] Payers Date Payer Category Payer Medicare [id number] 2025 Self-pay 2025 Unknown [id number] Unknown [id number] Unknown [id number] Unknown [id number] Social History Date Type Detail Facility Start: 02-20-2025 End: 02-20-2025 Tobacco smoking status NHIS Never smoked tobacco (finding) [facility] Sex Female [facility] Start: 1960 Sex Assigned At Female [facility] Goals Date Patient Goal Desired Activity /State Functional Status Date Assessment Result Facility 02-21-2025 Functional status Ambulates [facility] Work Phone: Mental Status Date Assessment Result Facility 02-21-2025 Cognitive function Voice/Name Lafe C [facility] Work Phone: 02-20-2025 Cognitive function Level Of Consciousness Awake [facility] Work Phone: Clinical Notes 02-20-2025 to 02-21-2025 Note Date & Type Note Facility 02-21-2025 Consult note [facility] 02-21-2025 History and physical note [facility] 02-21-2025 Discharge summary [facility] 02-21-2025 Discharge summary Note Date/Time February 21, 2025 2:25pm [facility] Medical Records Department [address] [place] [address] Discharge Summary 02/21/25 0720 MR#: [id number] Acct: [id number] Name: KENTRELL VARGAS Rep #:[id number] : 1960 64 From: Reena Redmond DO PCP: Care Physician,No Primary Status :ADM IN Location: [place] [address] Providers Date of Admission: 02/20/25 Date of Discharge: 02/21/25 Primary Care Physician: No Primary Care Phys Reason For Visit: HYPOKALEMIA/HYPERCALCEMIA Diagnosis Discharge Diagnosis (1) Elevated serum creatinine: Status: Acute Code(s): R79.89 - Other specified abnormal findings of blood chemistry (2) Hypercalcemia: Status: Acute Code(s): E83.52 - Hypercalcemia (3) Vitamin D toxicity: Status: Acute Code(s): T45.2X1A - Poisoning by vitamins, accidental (unintentional), initial encounter (4) Acute hypokalemia: Status: Acute Code(s): E87.6 - Hypokalemia (5) Elevated blood pressure reading: Status: Acute Code(s): R03.0 - Elevated blood-pressure reading, without diagnosis of hypertension (6) Anemia: Status: Acute Code(s): D64.9 - Anemia, unspecified Medications at Discharge Home Medications amlodipine 10 mg tablet 10 mg PO DAILY #30 tabs 02/21/25 losartan 50 mg tablet 50 mg PO DAILY #30 tabs 02/21/25 Hospital Course Operations None Procedures - (CTA chest/abdomen and pelvis) Summary of Care Provided Minutes Spent on Discharge: 37 Hospital Course: KENTRELL VARGAS, is a 64 F who presented to the emergency department at [facility] on 02/20/2025 with chief complaint of forgetfulness, some dizziness, fogginess feeling of elevated blood pressure. Patient has not seen aphysician since she turned 48. She also feels off balance and generally fatigued. She did complain of some thirst and having a dry mouth and some increased urination and has had an intentional weight loss of 40 pounds. Vital signs on presentation showed a temperature of 97.6, heart rate was 96, respiratory was 18, blood pressure was 186/90 and pulse ox was 99% on room air. CBC showed a normal white count with a mild anemia having a hemoglobin 11.8. Differential is unremarkable. Chemistry panel showed a potassium of 2.3 with a BUN of 16 and serum creatinine 1.23. Her calcium was markedly elevated at 14.7 with an elevated ionized calcium at 1.54. TSH, folic acid, and B12 were all within normal limits. Her urinalysis was overtly unremarkable. The emergency department sent off an intact PTH and I added on a vitamin D25 and [address] of the brain was unremarkable for any acute findings. Patient was started onaggressive IV fluids and request for admission was made. Her intact PTH was in the low normal range. Vitamin D 125 is pending at the time of discharge howeverher vitamin D 25 level was greater than 240 which is the upper limits of the capacity of our testing. Upon review further with the patient when questioning about vitamins as they were not documented as part of her med reconciliation, she admitted to taking a significant amount of vitamin D supplementation. She was unclear of the dosage but was taking 1 tablet daily since May. Her brought in the bottle on the a.m. of 02/21/2025 and she was taking 50,000international units daily since May of this year which explains her vitamin D toxicity leading to her hypercalcemia. With IV fluids we got her calcium downto 12.3. She was also given zoledronic acid at the time of admission which should bring down her calcium further in the next 24 to 48 hours. She was foundto have hypophosphatemia and hypokalemia. Both were replaced. She got a total of 40 mmol of potassium phosphorus via IV and 100 mill equivalents of p.o. potassium. Her blood pressure was persistently elevated so she was started on losartan 50 mg daily on the day of admission and then we added amlodipine 10 mg. She has a blood pressure cuff at home and is to check her blood pressure on a regular basis daily at various times, record them, and take them to her doctor'sappointment. She is not established with a primary care physician however we strongly encouraged her to do so at this point. I would recommend she have a follow-up BMP done in the next 2 weeks if possible to reassess her calcium levelas well as her renal function electrolytes. Patient was told to avoid all vitamin D supplementation and multivitamins as there is vitamin D most likely most of them as well. Patient and the voiced understanding. She was able to be discharged home in stable condition on 02/21/2025. Discharge diagnoses: Hypercalcemia Vitamin D toxicity Hypertension Acute hypokalemia Acute hypophosphatemia Elevated serum creatinine Anemia Patient improved more quickly than anticipated at the time of admission and diagnosis was able to be obtained and easily treated more quickly than anticipated the time of admission. Physical Exam Const alert, oriented x3, no apparent distress, no limitations, healthy appearing and well nourished; Negative for average body habitus Constitutional Narrative: Overweight, upper middle-aged, white female, sitting up in bed, at bedside, patient appears comfortable, nontoxic General Appearance: cooperative, comfortable, well kempt and well developed Exam Limitations: no limitations Nutritional Appearance: overweight HEENT normocephalic, head/scalp atraumatic, hearing grossly normal bilaterally and moist oral mucous membranes HEENT Narrative: Mallampati 2-3, no thrush Eyes conjunctivae normal Eyes Narrative: No scleral icterus Neck supple Neck Narrative: Trachea midline Resp normal respiratory effort, no retractions, no use of accessory muscles and clearto auscultation bilaterally Auscultation: Negative for rales, rhonchi or wheezes Cardio regular rate, regular rhythm, S1 normal heart sound, S2 normal heart sound, no murmurs, no rub, no gallops and no clicks GI normal to inspection, nondistended, normoactive bowel sounds, soft to palpation and non-tender Extremity no clubbing, cyanosis or edema Extremity Narrative: 2+ pedal and radial pulses Skin no jaundice, no petechiae and no mottling Neuro moves all extremities and no focal motor deficits Neuro Narrative: Reflexes were normoactive, mild generalized weakness Speech: speech normal Psych affect normal Psych Narrative: Very pleasant, interacts appropriately Weight / BMI Weight Weight: 75.251 kg Body Mass Index (BMI) 28.3 ABG / Lab / Microbiology Data 02/21/25 05:41 02/21/25 05:41 Laboratory: Laboratory Results - last 24 hr 02/20/25 10:40: Vitamin D 25-Hydroxy > 240.0 H 02/20/25 13:00: Ionized Calcium Cancelled 02/21/25 05:41: WBC 8.5, RBC 3.43 L, Hgb 10.7 L, Hct 30.1 L, MCV 87.8, MCH 31.2,MCHC 35.5, RDW Std Deviation 45.8 H, RDW Coeff of Liza 14.3, Plt Count 224, MPV 10.7, Immature Gran % (Auto) 0.500, Neut % (Auto) 70.9 H, Lymph % (Auto) 16.9 L,Benton % (Auto) 8.8, Eos % (Auto) 2.4, Baso % (Auto) 0.5, Absolute Neuts (auto) 6.0, Absolute Lymphs (auto) 1.43, Nucleated RBC % 0, Sodium 148 H, Potassium 2.4L*, Chloride 112 H, Carbon Dioxide 26.1, Anion Gap 9, BUN 11, Creatinine 1.01, Estim Creat Clear Calc 54.42, Est GFR (MDRD) Non-Af 61, BUN/Creatinine Ratio 10.4, Glucose 99, Calcium 12.3 H, Phosphorus 2.1 L, Magnesium 1.5 Radiography Diagnostic Testing: Radiology Impression Chest/Abdomen/Pelvis CT 02/20/25 12:48 IMPRESSION: Mild scarring in the lingular segment of the left upper lobe and left lower lobe. Coronary artery calcification. Multiple gallstones. Fatty infiltration of the pancreas. Findings suggestive of possible colitis of the transverse colon. Reading Location: [id number] D/C Instructions Discharge Activity: Return to Normal Activity Return to work on: 02/25/25 DC O2, CPAP, BIPAP Needs Home O2 Discharge instructions: No DC home with Oxygen: No Meaningful Use Info Meaningful Use Meaningful Use Diagnoses (Choose all that apply): None applicable Discharge Plan Admission Admit Date/Time: 02/20/25 12:37 Primary Reason for Your Visit: Intermittent dizziness/fogginess/weakness Attending Provider: Reena Redmond Primary Care Provider: Care Physician,No Primary Instructions Additional Instructions / Restrictions: 1. Discontinue all supplemental vitamins. Avoid vitamin D supplementation. 2. You were found to have vitamin D toxicity related to oversupplementation which in turn caused your calcium level to go up. 3. Your blood pressure was consistently elevated during your hospitalization. We started medications as noted below. Please take as ordered and follow-up with a primary care physician as soon as possible. 4. Check blood pressure at home daily at different times, write them down, and take to your next appointment Discharge Orders/Prescriptions Prescriptions: New amlodipine 10 mg Tablet 10 mg PO DAILY Qty: 30 0RF losartan 50 mg Tablet 50 mg PO DAILY Qty: 30 0RF Referrals / Follow Up: Care Physician,No Primary [Primary Care Provider, Medical] Disposition Disposition (needs filled in before D/C Order can be placed): Home, Self Care Charges/Coding Visit Charges Inpatient E&M: 99408 Disch Hosp >30min 02/21/25 1425 <Electronically signed by Reena Redmond DO> Cosigner Signature (if applicable): CC: Dr. Reena Redmond DO; No Primary Care Physician~ Signed [facility] Work Phone: 1(249) 562-505610-09-2025 [facility] Medical Records Department [address] [place] [id number] Discharge Summary 02/21/25 0720 MR#: [id number] Acct: [id number] Name: KENTRELL VARGAS Rep #: [id number] : 1960 64 From: Reena Redmond DO PCP: Care Physician,No Primary Status:ADM IN [id number] Prov[facility] Date of Admission: 02/20/25 Date of Discharge: 02/21/25 Primary Care Physician: No Primary Care Phys Reason For Visit: HYPOKALEMIA/HYPERCALCEMIA Diagnosis Discharge Diagnosis (1) Elevated serum creatinine: Status: Acute Code(s): R79.89 - Other specified abnormal findings of blood chemistry (2) Hypercalcemia: Status: Acute Code(s): E83.52 - Hypercalcemia (3) Vitamin D toxicity: Status: Acute Code(s): T45.2X1A - Poisoning by vitamins, accidental (unintentional), initial encounter (4) Acute hypokalemia: Status: Acute Code(s): E87.6 - Hypokalemia (5) Elevated blood pressure reading: Status: Acute Code(s): R03.0 - Elevated blood-pressure reading, without diagnosis of hypertension (6) Anemia: Status: Acute Code(s): D64.9 - Anemia, unspecified Medications at Discharge Home Medications amlodipine 10 mg tablet 10 mg PO DAILY #30 tabs 02/21/25 losartan 50 mg tablet 50 mg PO DAILY #30 tabs 02/21/25 Hospital Course Operations None Procedures - (CTA chest/abdomen and pelvis) Summary of Care Provided Minutes Spent on Discharge: 37 Hospital Course: KENTRELL VARGAS, is a 64 F who presented to the emergency department at [facility] on 02/20/2025 with chief complaint of forgetfulness, some dizziness, fogginess feeling of elevated blood pressure. Patient has not seen a physician since she turned 48. She also feels off balance and generally fatigued. She did complain of some thirst and having a dry mouth and some increased urination and has had an intentional weight loss of 40 pounds. Vital signs on presentation showed a temperature of 97.6, heart rate was 96, respiratory was 18, blood pressure was 186/90 and pulse ox was 99% on room air. CBC showed a normal white count with a mild anemia having a hemoglobin 11.8. Differential is unremarkable. Chemistry panel showed a potassium of 2.3 with a BUN of 16 and serum creatinine 1.23. Her calcium was markedly elevated at 14.7 with an elevated ionized calcium at 1.54. TSH, folic acid, and B12 were all within normal limits. Her urinalysis was overtly unremarkable. The emergency department sent off an intact PTH and I added on a vitamin D25 and [address] of the brain was unremarkable for any acute findings. Patient was started on aggressive IV fluids and request for admission was made. Her intact PTH was in the low normal range. Vitamin D 125 is pending at the time of discharge however her vitamin D 25 level was greater than 240 which is the upper limits of the capacity of our testing. Upon review further with the patient when questioning about vitamins as they were not documented as part of her med reconciliation, she admitted to taking a significant amount of vitamin D supplementation. She was unclear of the dosage but was taking 1 tablet daily since May. Her brought in the bottle on the a.m. of 02/21/2025 and she was taking 50,000 international units daily since May of this year which explains her vitamin D toxicity leading to her hypercalcemia. With IV fluids we got her calcium down to 12.3. She was also given zoledronic acid at the time of admission which should bring down her calcium further in the next 24 to 48 hours. She was found to have hypophosphatemia and hypokalemia. Both were replaced. She got a total of 40 mmol of potassium phosphorus via IV and 100 mill equivalents of p.o. potassium. Her blood pressure was persistently elevated so she was started on losartan 50 mg daily on the day of admission and then we added amlodipine 10 mg. She has a blood pressure cuff at home and is to check her blood pressure on a regular basis daily at various times, record them, and take them to her doctor's appointment. She is not established with a primary care physician however we strongly encouraged her to do so at this point. I would recommend she have a follow-up BMP done in the next 2 weeks if possible to reassess her calcium level as well as her renal function electrolytes. Patient was told to avoid all vitamin D supplementation and multivitamins as there is vitamin D most likely most of them as well. Patient and the voiced understanding. She was able to be discharged home in stable condition on 02/21/2025. Discharge diagnoses: Hypercalcemia Vitamin D toxicity Hypertension Acute hypokalemia Acute hypophosphatemia Elevated serum creatinine Anemia Patient improved more quickly than anticipated at the time of admission and diagnosis was able to be obtained and easily treated more quickly than anticipated the time of a (more content not included)...[facility]10-08-2025 Discharge summary Author Crispin Xiong [facility] Note Date/Time February 20, 2025 12 :38pm [facility] Medical Records Department [address] [place] [address] Emergency Department Summary 02/20/25 MR#: [id number] Acct: [id number] Name: KENTRELL VARGAS Rep #:[id number] : 1960 64 From: Crispin Xiong MD PCP: Care Physician,No Primary Status :REG ER Location: ED HPI History of Present Illness Chief Complaint: Hypertension Detail of Chief Complaint: Intermittent "dizziness ", fogginess, blood pressure noted to be elevated t Informant: patient Onset/Context/Timing Onset: Today (Blood pressure 192/112 at work) and Month(s) (Other symptoms have been intermittent for over the past several months) Context: Sudden Onset Timing: Intermittent Quality: Dizziness, forgetfulness, feeling foggy Location: Not applicable Current Severity: Gone (Except blood pressure is elevated) Maximum Severity: Moderate Worsened by: Nothing Relieved by: Nothing Associated Symptoms Associated Symptoms: Nothing Narrative Narrative: Patient is a 64-year-old woman who has not seen a physician in 26 years who experienced dizziness today described as her balance being off. It is not positional. There is no associated double vision, blurred vision or loss of vision. She has had no trouble with speech or swallowing. She denies paresthesia, anesthesia or weakness of her upper or lower extremities. She denies headache. She denies nausea or vomiting. She denies black or maroon-colored stool. She has had intentional weight loss of approximately 40 pounds. There is no history of trauma. Patient does endorse thirst and dry mouth. She has had some increased urinationas well Prior similar symptoms: No Recent Illness/Hospitalization: No PFSH PFSH Medical History no medical history no medical history Allergy/AdvReac Type Severity Reaction Status Date / Time No Known Allergies Allergy Verified 02/20/25 10:16 Surgical History no surgical history no surgical history Social History Smoking Status: Never smoker ROS ROS ED Constitutional Constitutional ED: Reports weight loss; Denies chills, fever(s), subjective or sweats Eyes Eyes: Reports other Details: She is scheduled for an eye appointment. Her insurance pays for new eyeglasses every 3 years. ; Denies blurry vision, change in vision or diplopia ENT ENT ED: Denies ear pain, rhinorrhea or sore throat Cardiovascular Cardiovascular: Denies chest pain, orthopnea, palpitations, paroxysmal nocturnaldyspnea or racing heartbeat Respiratory/Chest Respiratory/Chest: Denies cough, dyspnea, dyspnea on exertion, orthopnea or paroxysmal nocturnal dyspnea Gastrointestinal Gastrointestinal: Denies abdominal pain, nausea or vomiting Genitourinary Genitourinary ED: Denies dysuria, hematuria or urinary frequency Musculoskeletal Musculoskeletal: Denies arthralgias, back pain, myalgias or neck pain Integumentary Denies rash Neurologic Neurologic: Reports other Details: Detailed HPI narrative ; Denies headache(s), paresthesias or weakness Psychiatric Psychiatric: Denies anxiety or depression Endocrine Endocrinology: Denies cold intolerance or heat intolerance Hematologic/Lymphatic Hematologic/Lymphatic: Reports systems reviewed and no addt'l complaints, exceptas documented EXAM Physical Exam Const Vital Signs: 02/20/25 10:15 02/20/25 10:50 02/20/25 12:17 Temperature 97.6 F L Temperature Source Oral Pulse Rate 96 79 Respiratory Rate 18 16 Respiratory Effort Normal Non-Labored Respiratory Pattern Normal Blood Pressure 186/90 H 192/79 H Blood Pressure Mean 122 116 Pulse Ox 99 100 Oxygen Delivery Method Room Air Room Air Positive well nourished and well developed Constitutional Narrative: Blood pressure is elevated. General Appearance ED: well developed and NAD; Negative for pallor HEENT Reports moist mucous membranes HEENT Narrative: Head is atraumatic and normocephalic. Ears normal. Nares patent. Posterior pharynx is unremarkable. Uvula midline. No deviation tongue or protrusion. Eyes PERRL and EOMs intact bilaterally Eyes Narrative: There is no nystagmus. General Eye ED: Negative for pale conjunctiva or scleral icterus Neck no lymphadenopathy, supple and no JVD Chest Wall inspection of chest normal and palpation of chest normal Resp normal respiratory effort and clear to auscultation bilaterally Cardio regular rate, regular rhythm, S1 normal heart sound, S2 normal heart sound and no murmurs GI normal to inspection, nondistended, normoactive bowel sounds, non-tender, non-distended and no masses; Negative for hepatosplenomegaly Back/Spine no CVA tenderness Extremity normal to inspection General Extremety ED: Negative for edema or tenderness General Extremity: Negative for edema Neuro oriented x3, CN's II-XII intact bilaterally and no sensory deficits noted Neuro Narrative: Patient has no dysmetria. Romberg with eyes open and closes abnormal when her eyes are closed. Patient's proprioception is off. Significant other states at times when she is walking she seems to drift to the left. Sensorium / Orientation: alert Motor Exam: strength 5/5 throughout Skin no rashes or lesions noted, no wounds and No skin turgor normal General Skin Exam: Negative for jaundice or pallor MDM MDM MDM Narrative Medical decision making narrative: With intermittent dizziness that lasts hours and is not positional need to evaluate for central etiology and will obtain CT of the head. Since patient's proprioception is off will assess for folate and B12 deficiency. 2 relatives recently diagnosed with Radha's. She denies diarrhea, abdominal cramps, heat intolerance. She does have what I believed to be a nodule left lobe of thethyroid. Trachea was midline. For this reason we will obtain a TSH. CBC was obtained to assess for anemia since she appears pale. BMP to assess for renal function with her elevated blood pressure. There are no prior records and she has not seen a physician in 26 years. Lab Data Attestation: I reviewed the patient's lab results. Lab results narrative: CBC reveals mild anemia with normal indices. UA reveals bacteria without pyuria. Macro was positive for leukoesterase and negative for blood and nitrites. Protein was slightly elevated. Labs: Laboratory Results - last 24 hr 02/20/25 02/20/25 10:40 10:58 WBC 8.3 RBC 3.86 L Hgb 11.8 L Hct 33.4 L MCV 86.5 MCH 30.6 MCHC 35.3 RDW Std Deviation 44.0 H RDW Coeff of Liza 14.0 Plt Count 235 MPV 10.0 Immature Gran % (Auto) 0.500 Neut % (Auto) 67.9 Lymph % (Auto) 20.9 Benton % (Auto) 9.1 Eos % (Auto) 1.1 Baso % (Auto) 0.5 Absolute Neuts (auto) 5.7 Absolute Lymphs (auto) 1.74 Nucleated RBC % 0 Sodium 141 Potassium 2.3 L* Chloride 101 Carbon Dioxide 30.5 Anion Gap 10 BUN 16 Creatinine 1.23 H Estim Creat Clear Calc 44.69 L Est GFR (MDRD) Non-Af 48 L BUN/Creatinine Ratio 12.9 Glucose 113 H Calcium 14.7 H* Total Bilirubin 0.61 AST 23 ALT 15 Alkaline Phosphatase 53 Total Protein 6.7 Albumin 4.1 Globulin 2.6 Albumin/Globulin Ratio 1.6 Vitamin B12 421 Serum Folate 18.10 TSH 3.250 Urine Color Yellow Urine Clarity Clear Urine pH 6.5 Ur Specific [place] 1.010 Urine Protein 30 H Urine Glucose (UA) Normal Urine Ketones Negative Urine Occult Blood Negative Urine Nitrite Negative Urine Bilirubin Negative Urine Urobilinogen Normal Ur Leukocyte Esterase 25 H Urine RBC 0-5 SEEN Urine WBC 0-5 SEEN Ur Squamous Epith Cells 5-10 SEEN Urine Bacteria 1+ Urine Mucus 0 SEEN With potassium of 2.3 will treat orally since there is no contraindication to oral treatment. Will obtain magnesium level. Because of the elevated calcium we will get a parathyroid level. Concern for malignancy. Will treat her hypercalcemia with IV fluids. Radiography Diagnostic Testing: Clinical Impression(s) from Imaging Studies Brain CT 02/20/25 10:31 IMPRESSION: 1. No evidence of intracranial hemorrhage or acute ischemia. 2. Changes of chronic microvascular ischemia and volume loss. Reading Location: [facility] Management Discussion w/another healthcare provider: Hospitalist (Case discussed with Dr. Reena Redmond. Admit PCU for workup of hypercalcemia and hypokalemia.) Discharge Plan Dx/Rx/DC Orders Clinical Impression: Hypercalcemia, Acute hypokalemia, Intermittent vertigo, Hypertension, Anemia, Elevated serum creatinine Disposition Disposition: Acute Care Hospital [facility] What to do if you have Problems For any increased pain, shortness of breath, bleeding, nausea or vomiting, chestpain, or any unexpected problems, contact your Primary Care Provider. Call [facility] ([phone]) or report to the closest Emergency Room. Call 911 if necessary. 02/20/25 1238 <Electronically signed by Crispin Xiong MD> Cosigner Signature (if applicable): CC: No Primary Care Physician ~ Signed [facility] Work Phone: 1(548) 438-776410-08-2025 Evaluation note* Diagnosis Onset Date Resolution Status Admit Date Acute hypokalemia acute February 20, 2025 12:37pm Hypercalcemia acute February 12:37pm Elevated serum creatinine resolved February 20, 2025 12:37pm Anemia inactive February 20, 2 025 12:37pm Elevated blood pressure reading inactive February 20 12:37pm Vitamin D toxicity inactive Octobe r 2024 12:37pm [facility] Work Phone: 1(405) 662-217610-08-2025 History and physical note Author Reena Redmond [facility] Note Date/Time February 21, 2025 2: 26pm [facility] Medical Records Department [address] [place] [address] H&P Exam - Hospitalist 02/20/25 1235 MR#: [id number] Acct: [id number] Name: KENTRELL VARGAS Rep #:[id number] : 1960 64 From: Reena Redmond DO PCP: Care Physician,No Primary Status :ADM IN Location: [facility] [id number] HPI - General General Date of Admission: 02/20/25 Date of Service: 02/20/25 Chief Complaint: Intermittent "dizziness/fogginess HPI Narrative KENTRELL VARGAS, is a 64 F who presented to the emergency department at [facility] on 02/20/2025 with chief complaint of forgetfulness, some dizziness, fogginess feeling of elevated blood pressure. Patient has not seen aphysician since she turned 48. She also feels off balance and generally fatigued. She did complain of some thirst and having a dry mouth and some increased urination and has had an intentional weight loss of 40 pounds. Vital signs on presentation showed a temperature of 97.6, heart rate was 96, respiratory was 18, blood pressure was 186/90 and pulse ox was 99% on room air. CBC showed a normal white count with a mild anemia having a hemoglobin 11.8. Differential is unremarkable. Chemistry panel showed a potassium of 2.3 with a BUN of 16 and serum creatinine 1.23. Her calcium was markedly elevated at 14.7 with an elevated ionized calcium at 1.54. TSH, folic acid, and B12 were all within normal limits. Her urinalysis was overtly unremarkable. The emergency department sent off an intact PTH and I added on a vitamin D25 and [address] of the brain was unremarkable for any acute findings. Patient was started onaggressive IV fluids and request for admission was made. COUNT INCLUDES THE [facility] Medical History no medical history no medical history Allergy/AdvReac Type Severity Reaction Status Date / Time No Known Allergies Allergy Verified 02/20/25 10:16 Family History no significant family his no significant family history Surgical History no surgical history no surgical history Social History (Updated 02/20/25 @ 19:[address] Reena Redmond, DO) household members: spouse housing: house Smoking Status: Never smoker alcohol intake: current alcohol intake frequency: holidays/special occasions only substance use type: does not use ROS Constitutional Constitutional: Reports change in weight, fatigue and weakness; Denies anorexia,chills, fever(s), malaise, night sweats or other Eyes Eyes: Denies blurry vision, change in eye color, change in vision, discharge from eye(s), double vision, erythema, eye pain, loss of vision or other ENT HEENT: Denies abnormal hearing, dysphagia, ear pain, epistaxis, headache(s), hearing loss, nasal congestion, nasal discharge, post nasal drip, sinus pressure, sore throat or other Cardiovascular Cardiovascular: Denies chest pain, claudication, dyspnea on exertion, edema, lightheadedness, orthopnea, palpitations, paroxysmal nocturnal dyspnea, rapid heart rate, syncope or other Respiratory/Chest Respiratory/Chest: Denies cough, dyspnea, excessive phlegm production, hemoptysis, productive cough, shortness of breath at rest, shortness of breath with exertion, wheezing or other Gastrointestinal Gastrointestinal: Reports constipation; Denies abdominal pain, coffee ground emesis, diarrhea, dyspepsia, hematemesis, hematochezia, loose stools, melena, nausea, vomiting or other Genitourinary Genitourinary: Reports urinary frequency; Denies burning urination, difficulty urinating, dysuria, hematuria, nocturia, urinary hesitancy, urinary incontinence, urinary urgency or other Musculoskeletal Musculoskeletal: Reports myalgias and other Details: Generalized weakness ; Denies arthralgias, back pain, joint pain, joint stiffness, joint swelling or neck pain Neurologic Neurologic: Reports abnormal gait and disequilibrium; Denies abnormal speech, confusion, dizziness, focal weakness, headache(s), numbness, paresthesias, seizure-like activity, seizures, syncope, tingling, tremor(s) or other Psychiatric Psychiatric: Denies anxiety, depression, homicidal ideation, suicidal ideation or other Endocrine Endocrinology: Denies change in body appearance, cold intolerance, excessive sweating, heat intolerance, polydipsia, polyuria or other Hematologic/Lymphatic Hematologic/Lymphatic: Denies anemia, easy bleeding, easy bruising, lymphadenopathy or other Allergic/Immunologic Allergic/Immunologic: Denies rhinitis, hives, eczemia, asthma or other Vital Signs Vital Signs Vital Signs: 02/20/25 10:15 02/20/25 10:50 02/20/25 12:17 Temperature 97.6 F L Temperature Source Oral Pulse Rate 96 79 Respiratory Rate 18 16 Respiratory Effort Normal Non-Labored Respiratory Pattern Normal Blood Pressure 186/90 H 192/79 H Blood Pressure Mean 122 116 Pulse Ox 99 100 Oxygen Delivery Method Room Air Room Air Weight Weight: 75.251 kg Body Mass Index (BMI) 28.5 Physical Exam Const alert, oriented x3, no apparent distress and well nourished Constitutional Narrative: Overweight, upper middle-aged, white female, lying in bed, family at bedside, patient appears comfortable, does not look toxic General Appearance: cooperative HEENT normocephalic, head/scalp atraumatic, hearing grossly normal bilaterally and moist oral mucous membranes HEENT Narrative: Mallampati 2, no thrush Resp normal respiratory effort, no retractions, no use of accessory muscles and clearto auscultation bilaterally Auscultation: Negative for rales, rhonchi or wheezes Cardio regular rate, regular rhythm, S1 normal heart sound, S2 normal heart sound, no murmurs, no rub, no gallops and no clicks GI normal to inspection, nondistended, normoactive bowel sounds, soft to palpation and non-tender Extremity no clubbing, cyanosis or edema Neuro moves all extremities and no focal motor deficits Neuro Narrative: Reflexes were normoactive, mild generalized weakness Speech: speech normal Psych affect normal Psych Narrative: Very pleasant, interacts appropriately Results Lab / Micro Data 02/20/25 10:40 02/20/25 10:40 Labs: Laboratory Results - last 24 hr 02/20/25 10:40: WBC 8.3, RBC 3.86 L, Hgb 11.8 L, Hct 33.4 L, MCV 86.5, MCH 30.6,MCHC 35.3, RDW Std Deviation 44.0 H, RDW Coeff of Liza 14.0, Plt Count 235, MPV 10.0, Immature Gran % (Auto) 0.500, Neut % (Auto) 67.9, Lymph % (Auto) 20.9, Benton % (Auto) 9.1, Eos % (Auto) 1.1, Baso % (Auto) 0.5, Absolute Neuts (auto) 5.7, Absolute Lymphs (auto) 1.74, Nucleated RBC % 0, Sodium 141, Potassium 2.3 L*, Chloride 101, Carbon Dioxide 30.5, Anion Gap 10, BUN 16, Creatinine 1.23 H, Estim Creat Clear Calc 44.69 L, Est GFR (MDRD) Non-Af 48 L, BUN/Creatinine Ratio12.9, Glucose 113 H, Calcium 14.7 H*, Total Bilirubin 0.61, AST 23, ALT 15, Alkaline Phosphatase 53, Total Protein 6.7, Albumin 4.1, Globulin 2.6, Albumin/Globulin Ratio 1.6, Vitamin B12 421, Serum Folate 18.10, TSH 3.250 02/20/25 10:58: Urine Color Yellow, Urine Clarity Clear, Urine pH 6.5, Ur Specific [place] 1.010, Urine Protein 30 H, Urine Glucose (UA) Normal, Urine Ketones Negative, Urine Occult Blood Negative, Urine Nitrite Negative, Urine Bilirubin Negative, Urine Urobilinogen Normal, Ur Leukocyte Esterase 25 H, UrineRBC 0-5 SEEN, Urine WBC 0- 5 SEEN, Ur Squamous Epith Cells 5-10 SEEN, Urine Bacteria 1+, Urine Mucus 0 SEEN Imaging Radiology Impression Brain CT 02/20/25 10:31 IMPRESSION: 1. No evidence of intracranial hemorrhage or acute ischemia. 2. Changes of chronic microvascular ischemia and volume loss. Reading Location: [id number] Assessment & Plan Assessment/Plan (1) Elevated serum creatinine: (2) Hypercalcemia: (3) Vitamin D toxicity: (4) Acute hypokalemia: (5) Elevated blood pressure reading: (6) Anemia: PLAN: Plan Hypocalcemia secondary to vitamin D toxicity - Patient has been taking excessive amounts of vitamin D dosing is unclear but she states she has been taking 2 tablets of a higher dose at home - to bring in a bottle in the morning - Stop vitamin D supplementation - Patient received 1 dose of zoledronic acid - Continue aggressive IV fluids - Repeat ionized calcium in a.m. - CT chest abdomen pelvis negative for any signs of malignancy - PTH low normal/PTH RP was ordered on admission and still pending Elevated blood pressure reading - Highly suspect patient has hypertension at baseline - Does not follow with a doctor regularly - Start losartan 50 mg daily - suspect will need up titration but continue to monitor blood pressure - As needed hydralazine available for systolic blood pressure greater than 170 Acute hypokalemia - Replaced - Recheck in a.m. - Magnesium levels 1.5 Elevated serum creatinine - baseline is unknown - Aggressive IV fluids and recheck in a.m. Anemia - Normocytic and very mild - Repeat CBC in a.m. as I do suspect she may be slightly dehydrated DVT prophylaxis - Enoxaparin 40 daily CODE STATUS - Full code Charges/Coding Visit Charges Inpatient E&M: 66192 Init Hosp L2 02/20/251928 <Electronically signed by Reena Redmond DO> Cosigner Signature (if applicable): CC: Dr. Reena Redmond DO; No Primary Care Physician~ Signed ADDENDUM by Dr. Reena Redmond DO on 02/21/25 at 1426 Addendum Hypocalcemia was dictated in dragon in error. Diagnosis was hypercalcemia 02/21/25 1426<Electronically signed by Reena Redmond DO> Cosigner Signature (if applicable): cc: Dr. Reena Redmond DO; No Primary Care Physician ~* Signed [facility] Work Phone: [phone]) 330-130410-08-2025 Radiology Diagnostic study note [facility] Imaging Services [address], [place] [address] CT Chest, Abd, Pel w/Contrast MR#: [id number] Acct: [id number] Name: KENTRELL VARGAS Rep #: [id number] : 1960 F 64 From: Dung Jones MD PCP: Care Physician,No Primary Status: ADM IN Study:CT Chest, Abd, Pel w/Contrast Date of E xam: 02/20/25 Exam# [id number] Ordering Dr: Deepika Redmond DO PROCEDURE: CT CHEST, ABD, PEL W/CONTRAST 02/20/2025 REASON FOR EXAM: HYPERCALCEMIA Dizziness. TECHNIQUE: Chest, abdomen and pelvis CT with intravenous contrast. Coronal and Sagittal reconstruction series were provided. One or more dose reduction techniques were used (e.g., Automated exposure control, adjustment of the mA and/or kV according to patient size, use of iterative reconstruction technique. PATIENT PREPARATION: Per protocol ORAL CONTRAST TYPE: None. CONTRAST: Isovue-300 VOLUME: 100mL RADIATION DOSE SUMMARY: CTDlvol: 11.2 mGy DLP: 916.16 mGycm COMPARISON: None FINDINGS: CT CHEST: Hardware: None Lymph nodes: No significant lymph nodes are seen. Heart and Vasculature: The heart is nonenlarged. Coronary artery calcification. Lungs and Airways: Increased linear markings in the lingular segment of the leftupper lobe suggestive of scarring. Minimal scarring in the left lower lobe. No pulmonary nodule seen. Pleura: No pleural effusion. Bones: Degenerative changes of the thoracic spine. CT ABDOMEN/PELVIS: Liver: There is a 2 cm cyst in the posterior dome of the right lobe of the liver. There is also evidence of a 1.9 cm cyst in the inferior medial aspect of the right lobe of the liver. Gallbladder: Small gallstones. Spleen: Normal size. Pancreas: Diffuse fatty atrophy. Adrenals: Unremarkable Kidneys: Normal renal sizes. No hydronephrosis. Bladder: Distended urinary bladder. Reproductive Organs: Normal uterine size and contour. Ovaries are unremarkable. Bowel: Findings suggestive of possible colitis of the transverse colon. Appendix: The appendix is not identified. There is no inflammatory process identified in the right lower quadrant to suggest appendicitis. Lymph nodes: Unremarkable. Vasculature: Mild diffuse atherosclerotic calcifications are noted. Peritoneum / Retroperitoneum: Unremarkable Bones: Degenerative changes of the spine. Grade 1 anterior listhesis of L4 on L5 without spondylolysis. CT/CT Chest, Abd, Pel w/Contrast IMPRESSION: Mild scarring in the lingular segment of the left upper lobe and left lower lobe. Coronary artery calcification. Multiple gallstones. Fatty infiltration of the pancreas. Findings suggestive of possible colitis of the transverse colon. Reading Location: [facility] CC: Dr. Reena Redmond, DO; No Primary Care Physician ~ Information Services Assistant: Signed [facility]10-08-2025 Discharge summary [facility] Medical Records Department [address] [place] [address] Emergency Department Summary 02/20/25 MR#: [id number] Acct: [id number] Name: KENTRELL VARGAS Rep #:[id number] : 1960 64 From: Crispin Xiong MD PCP: Care Physician,No Primary Status :REG ER Location: ED HPI History of Present Illness Chief Complaint: Hypertension Detail of Chief Complaint: Intermittent "dizziness ", fogginess, blood pressure noted to be elevated t Informant: patient Onset/Context/Timing Onset: Today (Blood pressure 192/112 at work) and Month(s) (Other symptoms have been intermittent for over the past several months) Context: Sudden Onset Timing: Intermittent Quality: Dizziness, forgetfulness, feeling foggy Location: Not applicable Current Severity: Gone (Except blood pressure is elevated) Maximum Severity: Moderate Worsened by: Nothing Relieved by: Nothing Associated Symptoms Associated Symptoms: Nothing Narrative Narrative: Patient is a 64-year-old woman who has not seen a physician in 26 years who experienced dizziness today described as her balance being off. It is not positional. There is no associated double vision,blurred vision or loss of vision. She has had no trouble with speech or swallowing. She denies pares thesia, anesthesia or weakness of her upper or lower extremities. She denies headache. She denies nausea or vomiting. She denies black or maroon-colored stool. She has had intentional weight loss of approximately 40 pounds. There is no history of trauma. Patient does endorse thirst and dry mouth. She has had some increased urinationas well Prior similar symptoms: No Recent Illness/Hospitalization: No PFSH PFSH Medical History no medical history no medical history Allergy/AdvReac Type Severity Reaction Status Date / Time No Known Allergies Allergy Verified 02/20/25 10:16 Surgical History no surgical history no surgical history Social History Smoking Status: Never smoker ROS ROS ED Constitutional Constitutional ED: Reports weight loss; Denies chills, fever(s), subjective or sweats Eyes Eyes: Reports other Details: She is scheduled for an eye appointment. Her insurance pays for new eyeglasses every 3 years. ; Denies blurry vision, change in vision or diplopia ENT ENT ED: Denies ear pain, rhinorrhea or sore throat Cardiovascular Cardiovascular: Denies chest pain, orthopnea, palpitations, paroxysmal nocturnaldyspnea or racing heartbeat Respiratory/Chest Respiratory/Chest: Denies cough, dyspnea, dyspnea on exertion, orthopnea or paroxysmal nocturnal dyspnea Gastrointestinal Gastrointestinal: Denies abdominal pain, nausea or vomiting Genitourinary Genitourinary ED: Denies dysuria, hematuria or urinary frequency Musculoskeletal Musculoskeletal: Denies arthralgias, back pain, myalgias or neck pain Integumentary Denies rash Neurologic Neurologic: Reports other Details: Detailed HPI narrative ; Denies headache(s), paresthesias or weakness Psychiatric Psychiatric: Denies anxiety or depression Endocrine Endocrinology: Denies cold intolerance or heat intolerance Hematologic/Lymphatic Hematologic/Lymphatic: Reports systems reviewed and no addt'l complaints, exceptas documented EXAM Physical Exam Const Vital Signs: 02/20/25 10:15 02/20/25 10:50 02/20/25 12:17 Temperature 97.6 F L Temperature Source Oral Pulse Rate 96 79 Respiratory Rate 18 16 Respiratory Effort Normal Non-Labored Respiratory Pattern Normal Blood Pressure 186/90 H 192/79 H Blood Pressure Mean 122 116 Pulse Ox 99 100 Oxygen Delivery Method Room Air Room Air Positive well nourished and well developed Constitutional Narrative: Blood pressure is elevated. General Appearance ED: well developed and NAD; Negative for pallor HEENT Reports moist mucous membranes HEENT Narrative: Head is atraumatic and normocephalic. Ears normal. Nares patent. Posterior pharynx is unremarkable.Uvula midline. No deviation tongue or protrusion. Eyes PERRL and EOMs intact bilaterally Eyes Narrative: There is no nystagmus. General Eye ED: Negative for pale conjunctiva or scleral icterus Neck no lymphadenopathy, supple and no JVD Chest Wall inspection of chest normal and palpation of chest normal Resp normal respiratory effort and clear to auscultation bilaterally Cardio regular rate, regular rhythm, S1 normal heart sound, S2 normal heart sound and no murmurs GI normal to inspection, nondistended, normoactive bowel sounds, non-tender, non- distended and no masses; Negative for hepatosplenomegaly Back/Spine no CVA tenderness Extremity normal to inspection General Extremety ED: Negative for edema or tenderness General Extremity: Negative for edema Neuro oriented x3, CN's II-XII intact bilaterally and no sensory deficits noted Neuro Narrative: Patient has no dysmetria. Romberg with eyes open and closes abnormal when her eyes are closed. Patient's proprioception is off. Significant other states at times when she is walking she seems to drift to the left. Sensorium / Orientation: alert Motor Exam: strength 5/5 throughout Skin no rashes or lesions noted, no wounds and No skin turgor normal General Skin Exam: Negative for jaundice or pallor MDM MDM MDM Narrative Medical decision making narrative: With intermittent dizziness that lasts hours and is not positional need to evaluate for central etiology and will obtain CT of the head. Since patient's proprioception is off will assess for folate and B12 deficiency. 2 relatives recently diagnosed with Radha's. She denies diarrhea, abdominal cramps, heat intolerance. She does have what I believed to be a nodule left lobe of thethyroid. Trachea was midline. For this reason we will obtain a TSH. CBC was obtained to assess for anemia since she appears pale. BMP to assess for renal function with her elevated blood pressure. There are no prior records and she has not seen a physician in 26 years. Lab Data Attestation: I reviewed the patient's lab results. Lab results narrative: CBC reveals mild anemia with normal indices. UA reveals bacteria without pyuria. Macro was positivefor leukoesterase and negative for blood and nitrites. Protein was slightly elevated. Labs: Laboratory Results - last 24 hr 02/20/25 02/20/25 10:40 10:58 WBC 8.3 RBC 3.86 L Hgb 11.8 L Hct 33.4 L MCV 86.5 MCH 30.6 MCHC 35.3 RDW Std Deviation 44.0 H RDW Coeff of Liza 14.0 Plt Count 235 MPV 10.0 Immature Gran % (Auto) 0.500 Neut % (Auto) 67.9 Lymph % (Auto) 20.9 Benton % (Auto) 9.1 Eos % (Auto) 1.1 Baso % (Auto) 0.5 Absolute Neuts (auto) 5.7 Absolute Lymphs (auto) 1.74 Nucleated RBC % 0 Sodium 141 Potassium 2.3 L* Chloride 101 Carbon Dioxide 30.5 Anion Gap 10 BUN 16 Creatinine 1.23 H Estim Creat Clear Calc 44.69 L Est GFR (MDRD) Non-Af 48 L BUN/Creatinine Ratio 12.9 Glucose 113 H Calcium 14.7 H* Total Bilirubin 0.61 AST 23 ALT 15 Alkaline Phosphatase 53 Total Protein 6.7 Albumin 4.1 Globulin 2.6 Albumin/Globulin Ratio 1.6 Vitamin B12 421 Serum Folate 18.10 TSH 3.250 Urine Color Yellow Urine Clarity Clear Urine pH 6.5 Ur Specific [place] 1.010 Urine Protein 30 H Urine Glucose (UA) Normal Urine Ketones Negative Urine Occult Blood Negative Urine Nitrite Negative Urine Bilirubin Negative Urine Urobilinogen Normal Ur Leukocyte Esterase 25 H Urine RBC 0-5 SEEN Urine WBC 0-5 SEEN Ur Squamous Epith Cells 5-10 SEEN Urine Bacteria 1+ Urine Mucus 0 SEEN With potassium of 2.3 will treat orally since there is no contraindication to oral treatment. Will obtain magnesium level. Because of the elevated calcium we will get a parathyroid level. Concern formalignancy. Will treat her hypercalcemia with IV fluids. Radiography Diagnostic Testing: Clinical Impression(s) from Imaging Studies Brain CT 02/20/25 10:31 IMPRESSION: 1. No evidence of intracranial hemorrhage or acute ischemia. 2. Changes of chronic microvascular ischemia and volume loss. Reading Location: [id number] Management Discussion w/another healthcare provider: Hospitalist (Case discussed with Dr. Reena Redmond. Admit PCU for workup of hypercalcemia and hypokalemia.) Discharge Plan Dx/Rx/DC Orders Clinical Impression: Hypercalcemia, Acute hypokalemia, Intermittent vertigo, Hypertension, Anemia, Elevated serum creatinine Disposition Disposition: Acute Care Hospital [facility] What to do if you have Problems For any increased pain, shortness of breath, bleeding, nausea or vomiting, chestpain, or any unexpected problems, contact your Primary Care Provider. Call [facility] ([phone]) or report tothe closest Emergency Room. Call 911 if necessary. 02/20/25 1238 Cosigner Signature (if applicable): CC: No Primary Care Physician ~ Signed [facility]10-08-2025 Radiology Diagnostic study note [facility] Imaging Services [address] [place] [address] Brain/Head without Contrast MR#: [id number] Acct: [id number] Name: KENTRELL VARGAS Rep #: [id number] : 1960 F 64 From: Rosaline Nicolas MD PCP: Care Physician,No Primary Status: REG ER Study:Brain/Head without Contrast Date of Exa m: 02/20/25 Exam# [id number] Ordering Dr: Mali Xiong MD PROCEDURE: BRAIN/HEAD WITHOUT CONTRAST 02/20/2025 REASON FOR EXAM: INTERMITTENT BALANCE PROBLEMS, FORGETFULNESS TECHNIQUE: Procedure Code: CTBR Modality: CT Procedure: BRAIN/HEAD WITHOUT CONTRAST Coronal and Sagittal reconstruction series were provided. One or more dose reduction techniques were used (e.g., Automated exposure control, adjustment of the mA and/or kV according to patient size, use of iterative reconstruction technique. RADIATION DOSE SUMMARY: CTDlvol: 45 mGy DLP: 745 mGycm COMPARISON: None FINDINGS: Brain: There is no evidence of hemorrhage, acute ischemia or mass. No extra- axial fluid collection,midline shift or mass effect. Mild low-density in the periventricular white matter. CSF Spaces: Mild generalized cerebral atrophy Sinuses/Mastoids: Clear Bones: No fracture CT/Brain/Head without Contrast IMPRESSION: 1. No evidence of intracranial hemorrhage or acute ischemia. 2. Changes of chronic microvascular ischemia and volume loss. Reading Location: [facility] CC: Dr. Crispin Xiong MD; No Primary Care Physician ~ Information Services Assistant: [facility] Ziggy Dash [facility] Note Date/Time February 21, 2025 3: 59pm [facility] Medical Records Department [address] [place] [address] Counseling Note - Pharmacy 02/21/25 1558 MR#: [id number] Acct: [id number] Name: KENTRELL VARGAS Rep #:[id number] : 1960 64 From: Ziggy cifuentes PCP: Care Physician,No Primary Status :ADM IN Y Location: [place] [address] [facility] [place] [facility] has performed discharge medication counseling for this patient. The patient was counseled on the following discharge medications and changes in medications for homegoing review. - Losartan 50 mg tablet, Amlodipine 10 mg tablet The Reason for Use, instructions for use, and potential side effects were reviewed for all new medications. The patient's questions regarding all of their medications were answered. The patient was able to verbally demonstrate an understanding of their dischargemedications. Medications at Discharge Home Medications amlodipine 10 mg tablet 10 mg PO DAILY #30 tabs 02/21/25 losartan 50 mg tablet 50 mg PO DAILY #30 tabs 02/21/25 02/21/25 1559 <Electronically signed by Ziggy Alva> Date _ Ziggy Klein Signature (if applicable): Date CC: ~ Signed [facility] Work Phone: Discharge summary Author Crispin Xiong [facility] Note Date/Time February 20, 2025 12 :38pm [facility] Medical Records Department [address] [place] [address] Emergency Department Summary 02/20/25 MR#: [id number] Acct: [id number] Name: KENTRELL VARGAS Rep #:[id number] : 1960 64 From: Crispin Xiong MD PCP: Care Physician,No Primary Status :REG ER Location: ED HPI History of Present Illness Chief Complaint: Hypertension Detail of Chief Complaint: Intermittent "dizziness ", fogginess, blood pressure noted to be elevated t Informant: patient Onset/Context/Timing Onset: Today (Blood pressure 192/112 at work) and Month(s) (Other symptoms have been intermittent for over the past several months) Context: Sudden Onset Timing: Intermittent Quality: Dizziness, forgetfulness, feeling foggy Location: Not applicable Current Severity: Gone (Except blood pressure is elevated) Maximum Severity: Moderate Worsened by: Nothing Relieved by: Nothing Associated Symptoms Associated Symptoms: Nothing Narrative Narrative: Patient is a 64-year-old woman who has not seen a physician in 26 years who experienced dizziness today described as her balance being off. It is not positional. There is no associated double vision, blurred vision or loss of vision. She has had no trouble with speech or swallowing. She denies paresthesia, anesthesia or weakness of her upper or lower extremities. She denies headache. She denies nausea or vomiting. She denies black or maroon-colored stool. She has had intentional weight loss of approximately 40 pounds. There is no history of trauma. Patient does endorse thirst and dry mouth. She has had some increased urinationas well Prior similar symptoms: No Recent Illness/Hospitalization: No PFSH PFSH Medical History no medical history no medical history Allergy/AdvReac Type Severity Reaction Status Date / Time No Known Allergies Allergy Verified 02/20/25 10:16 Surgical History no surgical history no surgical history Social History Smoking Status: Never smoker ROS ROS ED Constitutional Constitutional ED: Reports weight loss; Denies chills, fever(s), subjective or sweats Eyes Eyes: Reports other Details: She is scheduled for an eye appointment. Her insurance pays for new eyeglasses every 3 years. ; Denies blurry vision, change in vision or diplopia ENT ENT ED: Denies ear pain, rhinorrhea or sore throat Cardiovascular Cardiovascular: Denies chest pain, orthopnea, palpitations, paroxysmal nocturnaldyspnea or racing heartbeat Respiratory/Chest Respiratory/Chest: Denies cough, dyspnea, dyspnea on exertion, orthopnea or paroxysmal nocturnal dyspnea Gastrointestinal Gastrointestinal: Denies abdominal pain, nausea or vomiting Genitourinary Genitourinary ED: Denies dysuria, hematuria or urinary frequency Musculoskeletal Musculoskeletal: Denies arthralgias, back pain, myalgias or neck pain Integumentary Denies rash Neurologic Neurologic: Reports other Details: Detailed HPI narrative ; Denies headache(s), paresthesias or weakness Psychiatric Psychiatric: Denies anxiety or depression Endocrine Endocrinology: Denies cold intolerance or heat intolerance Hematologic/Lymphatic Hematologic/Lymphatic: Reports systems reviewed and no addt'l complaints, exceptas documented EXAM Physical Exam Const Vital Signs: 02/20/25 10:15 02/20/25 10:50 02/20/25 12:17 Temperature 97.6 F L Temperature Source Oral Pulse Rate 96 79 Respiratory Rate 18 16 Respiratory Effort Normal Non-Labored Respiratory Pattern Normal Blood Pressure 186/90 H 192/79 H Blood Pressure Mean 122 116 Pulse Ox 99 100 Oxygen Delivery Method Room Air Room Air Positive well nourished and well developed Constitutional Narrative: Blood pressure is elevated. General Appearance ED: well developed and NAD; Negative for pallor HEENT Reports moist mucous membranes HEENT Narrative: Head is atraumatic and normocephalic. Ears normal. Nares patent. Posterior pharynx is unremarkable. Uvula midline. No deviation tongue or protrusion. Eyes PERRL and EOMs intact bilaterally Eyes Narrative: There is no nystagmus. General Eye ED: Negative for pale conjunctiva or scleral icterus Neck no lymphadenopathy, supple and no JVD Chest Wall inspection of chest normal and palpation of chest normal Resp normal respiratory effort and clear to auscultation bilaterally Cardio regular rate, regular rhythm, S1 normal heart sound, S2 normal heart sound and no murmurs GI normal to inspection, nondistended, normoactive bowel sounds, non-tender, non-distended and no masses; Negative for hepatosplenomegaly Back/Spine no CVA tenderness Extremity normal to inspection General Extremety ED: Negative for edema or tenderness General Extremity: Negative for edema Neuro oriented x3, CN's II-XII intact bilaterally and no sensory deficits noted Neuro Narrative: Patient has no dysmetria. Romberg with eyes open and closes abnormal when her eyes are closed. Patient's proprioception is off. Significant other states at times when she is walking she seems to drift to the left. Sensorium / Orientation: alert Motor Exam: strength 5/5 throughout Skin no rashes or lesions noted, no wounds and No skin turgor normal General Skin Exam: Negative for jaundice or pallor MDM MDM MDM Narrative Medical decision making narrative: With intermittent dizziness that lasts hours and is not positional need to evaluate for central etiology and will obtain CT of the head. Since patient's proprioception is off will assess for folate and B12 deficiency. 2 relatives recently diagnosed with Radha's. She denies diarrhea, abdominal cramps, heat intolerance. She does have what I believed to be a nodule left lobe of thethyroid. Trachea was midline. For this reason we will obtain a TSH. CBC was obtained to assess for anemia since she appears pale. BMP to assess for renal function with her elevated blood pressure. There are no prior records and she has not seen a physician in 26 years. Lab Data Attestation: I reviewed the patient's lab results. Lab results narrative: CBC reveals mild anemia with normal indices. UA reveals bacteria without pyuria. Macro was positive for leukoesterase and negative for blood and nitrites. Protein was slightly elevated. Labs: Laboratory Results - last 24 hr 02/20/25 02/20/25 10:40 10:58 WBC 8.3 RBC 3.86 L Hgb 11.8 L Hct 33.4 L MCV 86.5 MCH 30.6 MCHC 35.3 RDW Std Deviation 44.0 H RDW Coeff of Liza 14.0 Plt Count 235 MPV 10.0 Immature Gran % (Auto) 0.500 Neut % (Auto) 67.9 Lymph % (Auto) 20.9 Benton % (Auto) 9.1 Eos % (Auto) 1.1 Baso % (Auto) 0.5 Absolute Neuts (auto) 5.7 Absolute Lymphs (auto) 1.74 Nucleated RBC % 0 Sodium 141 Potassium 2.3 L* Chloride 101 Carbon Dioxide 30.5 Anion Gap 10 BUN 16 Creatinine 1.23 H Estim Creat Clear Calc 44.69 L Est GFR (MDRD) Non-Af 48 L BUN/Creatinine Ratio 12.9 Glucose 113 H Calcium 14.7 H* Total Bilirubin 0.61 AST 23 ALT 15 Alkaline Phosphatase 53 Total Protein 6.7 Albumin 4.1 Globulin 2.6 Albumin/Globulin Ratio 1.6 Vitamin B12 421 Serum Folate 18.10 TSH 3.250 Urine Color Yellow Urine Clarity Clear Urine pH 6.5 Ur Specific [place] 1.010 Urine Protein 30 H Urine Glucose (UA) Normal Urine Ketones Negative Urine Occult Blood Negative Urine Nitrite Negative Urine Bilirubin Negative Urine Urobilinogen Normal Ur Leukocyte Esterase 25 H Urine RBC 0-5 SEEN Urine WBC 0-5 SEEN Ur Squamous Epith Cells 5-10 SEEN Urine Bacteria 1+ Urine Mucus 0 SEEN With potassium of 2.3 will treat orally since there is no contraindication to oral treatment. Will obtain magnesium level. Because of the elevated calcium we will get a parathyroid level. Concern for malignancy. Will treat her hypercalcemia with IV fluids. Radiography Diagnostic Testing: Clinical Impression(s) from Imaging Studies Brain CT 02/20/25 10:31 IMPRESSION: 1. No evidence of intracranial hemorrhage or acute ischemia. 2. Changes of chronic microvascular ischemia and volume loss. Reading Location: [facility] Management Discussion w/another healthcare provider: Hospitalist (Case discussed with Dr. Reena Redmond. Admit PCU for workup of hypercalcemia and hypokalemia.) Discharge Plan Dx/Rx/DC Orders Clinical Impression: Hypercalcemia, Acute hypokalemia, Intermittent vertigo, Hypertension, Anemia, Elevated serum creatinine Disposition Disposition: Acute Care Hospital [facility] What to do if you have Problems For any increased pain, shortness of breath, bleeding, nausea or vomiting, chestpain, or any unexpected problems, contact your Primary Care Provider. Call [facility] ([phone]) or report to the closest Emergency Room. Call 911 if necessary. 02/20/25 1238 <Electronically signed by Crispin Xiong MD> Cosigner Signature (if applicable): CC: No Primary Care Physician ~ Signed [facility] Work Phone: Evaluation noteNo assessment information available [facility] Work Phone: Hospital Discharge instructionsAdditional Instructions 1. Discontinue all supplemental vitamins. Avoid vitamin D supplementation. 2. You were found to have vitamin D toxicity related to oversupplementation which in turn caused your calcium level to go up. 3. Your blood pressure was consistently elevated during your hospitalization. We started medications as noted below. Please take as ordered and follow-up with a primary care physician as soon as possible. 4. Check blood pressure at home daily at different times, write them down, and take to your next appointment [facility]: [facility] Reason for referral (narrative)No reason for referral information available[facility]: Chief Complaint and Reason for Visit Chief Complaint Admit Date HYPOKALEMIA/HYPERCALCEMIA February 20, 025 12:37pm Chief Complaint Admit Date HYPOKALEMIA/HYPERCALCEMIA February 20, 12:37pm HYPOKALEMIA/HYPERCALCEMIA February 21 025 7:20am Reason for Visit Admit Date Acute hypokalemia February 20, 2025 12 :37pm Hypercalcemia February 20, 2025 12 :37pm Elevated serum creatinine February 20 2 025 12:37pm Anemia February 20, 2025 12 :37pm Elevated blood pressure reading February 20, 2025 12:37pm Vitamin D toxicity February 20, 2025 12 :37pm Advance Directives Advance Directive Response Recorded Date/ Time Do you have a Healthcare Power of Shirt Cleaner? No February 20, 2025 10:49am Advance Directive Response Recorded Date/ Time Do you have a Healthcare Power of Shirt Cleaner? No February 20, 2025 1:40pm Summary Purpose Family History No Family History Records Found Additional Source Comments Care Teams (unrecognized sec tion and content) Team Status: Active Member Role/Relationship Status Dates No Primary Care Physician Primary care physician Activ e Team Status: Active Member Role/Relationship Status Dates Dr. Crispin Xiong MD Emergency Department Physician Active Start: February 20, 2025 No Primary Care Physician Primary care physician Activ e Start: February 20, 2025 Dr. Reena Redmond DO Admitting physician Active Start: February 20, 2025 Dr. Reena Redmond DO Attending physician Active Start: February 20, 2025 Team Status: Inactive Member Role/Relationship Status Dates Dr. Crispin Xiong MD Emergency Department Physician Active Start: February 20, 2025 End: February 21, 2025 No Primary Care Physician Primary care physician Activ e Start: February 20, 2025 End: February 21, 2025 Dr. Reena Redmond DO Admitting physician Active Start: February 20, 2025 End: February 21, 2025 Dr. Reena Redmond DO Attending physician Active Start: February 20, 2025 End: February 21, 2025 Dr. Reena Redmond DO Nurse Practitioner Active S tart: February 20, 2025 Team Status: Active Member Role/Relationship Status Dates Dr. Crispin Xiong MD Emergency Department Physician Active Start: February 21, 2025 No Primary Care Physician Primary care physician Activ e Start: February 21, 2025 Dr. Reena Redmond DO Admitting physician Active Start: February 21, 2025 Dr. Reena Redmond DO Attending physician Active Start: February 21, 2025 Dr. Reena Redmond DO Nurse Practitioner Active S tart: February 21, 2025 Goals (unrecognized section and content) Type Treatment Intervention Code Status: Full Code - Verified INFORMATION SOURCE (unrecogn ized section and content) DATE CREATED AUTHOR 03/05/2025 [facility] FOR RECORDS PERTAINING TO PATIENTS WHO ARE OR HAVE BEEN ENROLLED IN A CHEMICAL DEPENDENCY/SUBSTANCEABUSE PROGRAM, SOME INFORMATION MAY BE OMITTED. This clinical summary was aggregated from multiple sources. Caution should be exercised in using it in the provision of clinical care. This summary normalizes information from multiple sources, and as a consequence, information in this document may materially change the coding, format and clinical context of patient data. In addition, data may be omitted in some cases. CLINICAL DECISIONS SHOULD BE BASED ON THE PRIMARY CLINICAL RECORDS. [employer] [facility]. provides no warranty or guarantee of the accuracy or completeness of information in this document.
[2025-03-15 17:41] LABS: Color, Urine Straw (Yellow); Glucose, Dipstick Normal (Normal); Ketone-Dipstick Negative (Negative); Leukocyte Esterase-Dipstick Negative /ul (Negative); Nitrite-Dipstick Negative (Negative); Occult Blood-Urine Negative /ul (Negative); Protein-Dipstick 15 mg/dl (Negative); Specific Gravity, Urine 1.010 (1.002-1.030); Urine Bilirubin Dipstick Negative (Negative)
[2025-03-15 17:48] LABS: Hematocrit 32.4 % (37-47); Hemoglobin 11.0 g/dL (12.0-15.0); Immature Granulocytes Count 0.030 X10^3/uL (0.0-0.0); Mean Corp Hgb Conc 34.0 g/dL (32-36); Mean Corpuscular Volume 88.0 fL (81-99); Mean Platelet Vol. 10.6 fl (6.2-12.0); NRBC Flagged by Analyzer 0 % (0-5); Platelet Count 297 K/mm3 (150-450); RBC Distribution Width CV 14.3 % (11.6-14.6); RBC Distribution Width SD 46.5 fl (35.1-43.9); Red Blood Count 3.68 M/mm3 (4.2-5.4); White Blood Count 8.1 K/mm3 (4.4-11.0)
[2025-03-15 18:17] LABS: Cholesterol 214 mg/dL (<=200); Low Density Lipoprotein Calc. 138 mg/dL; Magnesium 1.9 mg/dL (1.5-2.2); Triglycerides 141 mg/dL; Very Low Density Lipoprotein 28 mg/dL (5-40); cholesterol:hdl ratio screen 4.25
[2025-03-15 19:39] LABS: Vitamin D,25 Hydroxy > 240.0 ng/mL (30-100)
[2025-03-15 19:44] LABS: AST(SGOT) 18 U/L (<=31); Alanine Aminotransfer ALT/SGPT 9 U/L (<=34); Albumin, Serum 4.2 g/dL (3.4-4.8); Alkaline Phosphatase 69 U/L (35-104); Anion Gap 13 (5-15); BUN 27 mg/dL (4-19); BUN/Creat Ratio 26.8 RATIO (10-20); Calcium,Total 10.5 mg/dL (7.6-11.0); Carbon Dioxide 26.7 mmol/L (21.0-32.0); Chloride 99 mmol/L (98-108); Globulin 3.5 g/dL (2.2-4.2); Glucose 88 mg/dL (70-99); Potassium 2.5 mmol/L (3.3-5.1)
[2025-03-15 22:09] LABS: Red Blood Cells-Urine 0-5 SEEN /hpf (0-5); Squamous Epithelial Cells - UA 0-5 SEEN /hpf (5-10)
[2025-03-18 18:08] LABS: Thyroglobulin, Serum Qt. 27.9 ng/mL (1.5-38.5)
== END 2025-03-15 23:59 | disposition home or self-care (01) ==
LOC: MFPLAB 16:03
PROVIDERS: Visit Provider Family Medicine
DX: I10 Essential (primary) hypertension (principal); T45.2X1A Poisoning by vitamins, accidental (unintentional), initial encounter; E04.1 Nontoxic single thyroid nodule
CPT/HCPCS: 36415; 80053; 80061; 81001; 82306; 83735; 84432; 84439; 84443; 85025; 86376; 86800

== ENCOUNTER → 2025-03-18 | Outpatient (CLI) | payer BC, MEDICARE, SELFPAY ==
[2025-03-18 18:29] LABS: Ferritin 404 ng/mL (22-378); Iron 57 ug/dL (50-170); Iron Binding Capacity,Total 259 ug/dL (250-450); Iron Binding Capacity,Unsat 202 ug/dL (228-428); Magnesium 1.8 mg/dL (1.5-2.2); Potassium 3.1 mmol/L (3.3-5.1); Vitamin B12 277 pg/mL (180-914)
== END | disposition home or self-care (01) ==
LOC: MFPLAB 15:52
PROVIDERS: Visit Provider Family Medicine
DX: E87.6 Hypokalemia (principal); D64.9 Anemia, unspecified
CPT/HCPCS: 36415; 82607; 82728; 83540; 83550; 83735; 84132

== ENCOUNTER → 2025-03-22 | Outpatient (CLI) | payer BC, SELFPAY ==
[2025-03-22 18:00] LABS: Anion Gap 14 (5-15); BUN 31 mg/dL (4-19); BUN/Creat Ratio 22.9 RATIO (10-20); Calcium,Total 9.0 mg/dL (7.6-11.0); Carbon Dioxide 19.7 mmol/L (21.0-32.0); Chloride 98 mmol/L (98-108); Glucose 74 mg/dL (70-99); Potassium 4.6 mmol/L (3.3-5.1)
== END | disposition home or self-care (01) ==
LOC: MFPLAB 15:52
PROVIDERS: PCP Family Medicine; Referring Provider Family Medicine; Visit Provider Family Medicine
DX: I10 Essential (primary) hypertension (principal)
CPT/HCPCS: 36415; 80048

== ENCOUNTER → 2025-03-26 | Outpatient (CLI) | payer BC, SELFPAY ==
[2025-03-26 18:32] LABS: Anion Gap 20 (5-15); BUN 13 mg/dL (4-19); BUN/Creat Ratio 13.1 RATIO (10-20); Calcium,Total 8.8 mg/dL (7.6-11.0); Carbon Dioxide 15.8 mmol/L (21.0-32.0); Chloride 99 mmol/L (98-108); Glucose 76 mg/dL (70-99); Potassium 4.0 mmol/L (3.3-5.1)
== END | disposition home or self-care (01) ==
LOC: MTLAB 16:04
PROVIDERS: PCP Family Medicine; Referring Provider Family Medicine; Visit Provider Family Medicine
DX: I10 Essential (primary) hypertension (principal)
CPT/HCPCS: 36415; 80048

== ENCOUNTER → 2025-04-04 | Outpatient (CLI) | payer BC, SELFPAY ==
[2025-04-04 18:13] LABS: Anion Gap 13 (5-15); BUN 27 mg/dL (4-19); BUN/Creat Ratio 28.4 RATIO (10-20); Calcium,Total 9.7 mg/dL (7.6-11.0); Carbon Dioxide 21.6 mmol/L (21.0-32.0); Chloride 100 mmol/L (98-108); Glucose 83 mg/dL (70-99); Potassium 4.0 mmol/L (3.3-5.1)
== END | disposition home or self-care (01) ==
LOC: MFPLAB 16:00
PROVIDERS: PCP Family Medicine; Visit Provider Family Medicine
DX: I10 Essential (primary) hypertension (principal)
CPT/HCPCS: 36415; 80048

== ENCOUNTER → 2025-04-08 | Outpatient (CLI) | payer BC, SELFPAY ==
--- NOTE | 2025-04-08 13:33 | US_ITS ---
PROCEDURE: THYROID 04/08/2025 REASON FOR EXAM: NODULE TECHNIQUE: Procedure Code: USTHY Modality: US Procedure: THYROID COMPARISON: None. FINDINGS: Transcutaneous 2-D grayscale and color Doppler ultrasound of the thyroid gland was performed. MEASUREMENTS: Right lobe: 5 x 2.3 x 1.8 cm. Left lobe: 4.7 x 1.7 x 1.6 cm. Isthmus: 11 mm. RIGHT SIDE: Heterogeneous echotexture. No discrete lesion. LEFT SIDE: Heterogeneous echotexture. No discrete lesion. ISTHMUS: No evidence of nodule or mass. Normal vascularity without microcalcification. No enlarged lymph nodes within the visualized neck. US/Thyroid IMPRESSION: 1. Diffusely heterogenous thyroid which can be seen with autoimmune disorders. 2. Enlarged isthmus. Reading Location: [id number]
--- NOTE | 2025-04-08 13:33 | ECHOD_ITS ---
Reason For Study Reason For Study: MURMUR Procedure This was a 2D Doppler, Color Flow transthoracic echocardiogram. Exam performed in department. Left Ventricle Normal LV size. The left ventricular ejection fraction is 60 %. Stage 1 diastolic dysfunction. No regional wall motion abnormalities noted. Right Ventricle Normal RV size. Normal systolic function. Atria Normal left atrium. Normal right atrium. Mitral Valve There is moderate mitral annular calcification. 0.4 x 0.9 cm calcified lesion attached to the posterior margin of the calcified plaque. Tricuspid Valve Normal tricuspid valve. Mild (1+) tricuspid valve insufficiency. Pulmonary artery systolic pressure is 33 mmHg. Aortic Valve Trisinus/trileaflet aortic valve. Pulmonic Valve Normal pulmonic valve. Great Vessels Normal aortic root. The pulmonary artery is normal size. Inferior vena cava collapse with respiration. Pericardium/Pleural No pericardial effusion. MMode/2D Measurements & Calculations LVIDd: 4.6 cm IVSd: 0.94 cm LVOT diam: 1.9 cm LVIDs: 2.5 cm LVPWd: 0.96 cm LVOT area: 2.7 cm2 RVDd: 3.3 cm FS: 45.1 % Ao root diam: 3.1 cm asc Aorta Diam: 3.2 cm LAV(MOD- bp): 30.1 ml LAV(MOD- bp) Indexed: 17.5 ml/m2 LAV(MOD- sp2): 33.3 ml LAV(MOD- sp4): 26.4 ml SV(MOD- sp4): 26.5 ml LVAd ap4: 19.6 cm2 LVAd ap2: 20.4 cm2 LVLd ap4: 7.1 cm LVLd ap2: 7.0 cm SI(MOD- sp4): 15.4 ml/m2 EDV(MOD-sp4): 46.3 ml EDV(MOD-sp2): 49.4 ml EDV(sp4-el): 46.1 ml EDV(sp2-el): 50.5 ml LVAs ap4: 11.7 cm2 LVAs ap2: 12.8 cm2 LVLs ap4: 6.0 cm LVLs ap2: 6.3 cm ESV(MOD-sp4): 19.8 ml ESV(MOD-sp2): 22.7 ml ESV(sp4-el): 19.3 ml ESV(sp2-el): 22.3 ml EF(MOD-sp4): 57.2 % EF(MOD-sp2): 53.9 % EF(sp4-el): 58.2 % SV(MOD-sp2): 26.6 ml SV(sp4-el): 26.8 ml Ao sinus diam: 3.1 cm SI(MOD-sp2): 15.5 ml/m2 Ao ST Junction: 2.3 cm LA dimension(2D): 3.7 cm LA A4 area: 12.5 cm2 TAPSE: 1.7 cm RA A4 area: 9.4 cm2 Time Measurements MV dec time: 0.22 sec Doppler Measurements & Calculations MV E max ac: 82.7 cm/sec Lat Peak E' Ac: 8.4 cm/sec Med Peak E' Ac: 7.3 cm/sec MV A max ac: 117.2 cm/sec E/E' lat: 9.9 E/E' med: 11.4 MV E/A: 0.71 MV dec slope: 380.9 cm/sec2 Ao V2 max: 143.5 cm/sec LV V1 max: 108.0 cm/sec Ao max P.2 mmHg LV V1 max P.7 mmHg Ao V2 mean: 102.7 cm/sec LV V1 mean P.3 mmHg Ao mean P.5 mmHg LV V1 mean: 70.9 cm/sec Ao V2 VTI: 31.4 cm LV V1 VTI: 25.7 cm AV (velocity ratio): 0.82 PARDEEP(I,D): 2.2 cm2 PARDEEP(V,D): 2.0 cm2 SV(LVOT): 69.9 ml PA V2 max: 102.0 cm/sec TR max ac: 274.7 cm/sec TR max P.2 mmHg ECHO/Echo Complete Interpretation Summary Normal LV size. The left ventricular ejection fraction is 60 %. Stage 1 diastolic dysfunction. There is moderate mitral annular calcification. 0.4 x 0.9 cm calcified lesion attached to the posterior margin of the calcified plaque Ordering Physician: Floyd Kemp Referring Physician: Floyd Kemp Performed By: Francesca Carson RDCS
== END | disposition home or self-care (01) ==
PROVIDERS: PCP Family Medicine; Referring Provider Family Medicine; Visit Provider Family Medicine
DX: R01.1 Cardiac murmur, unspecified (principal); E04.1 Nontoxic single thyroid nodule
CPT/HCPCS: 76536; 93306

== ENCOUNTER → 2025-05-02 | Outpatient (CLI) | payer BC, SELFPAY ==
[2025-05-02 18:07] LABS: Hematocrit 36.2 % (37-47); Hemoglobin 12.0 g/dL (12.0-15.0); Immature Granulocytes Count 0.020 X10^3/uL (0.0-0.0); Mean Corp Hgb Conc 33.1 g/dL (32-36); Mean Corpuscular Volume 91.2 fL (81-99); Mean Platelet Vol. 10.7 fl (6.2-12.0); NRBC Flagged by Analyzer 0 % (0-5); Platelet Count 244 K/mm3 (150-450); RBC Distribution Width CV 14.4 % (11.6-14.6); RBC Distribution Width SD 48.5 fl (35.1-43.9); Red Blood Count 3.97 M/mm3 (4.2-5.4); White Blood Count 7.4 K/mm3 (4.4-11.0)
[2025-05-02 18:37] LABS: Anion Gap 14 (5-15); BUN 27 mg/dL (4-19); BUN/Creat Ratio 25.5 RATIO (10-20); Calcium,Total 9.6 mg/dL (7.6-11.0); Carbon Dioxide 24.1 mmol/L (21.0-32.0); Chloride 101 mmol/L (98-108); Glucose 85 mg/dL (70-99); Potassium 3.5 mmol/L (3.3-5.1)
[2025-05-02 19:08] LABS: Vitamin D,25 Hydroxy > 240.0 ng/mL (30-100)
== END | disposition home or self-care (01) ==
LOC: MTLAB 16:44
PROVIDERS: PCP Family Medicine; Referring Provider Family Medicine; Visit Provider Family Medicine
DX: I10 Essential (primary) hypertension (principal); D64.9 Anemia, unspecified
CPT/HCPCS: 36415; 80048; 82306; 85025